=== PATIENT | female | born 2000 | race Caucasian/White ===

== ENCOUNTER 2022-03-24 22:35 | Inpatient (IN) | payer MEDICARE, MEDICAID, SELFPAY ==
[2022-03-24 22:47] VITALS: BP 155/106; PULSE 95; RESP 20; TEMP 36.7; O2SAT 96; BMI 38.2
--- NOTE | 2022-03-24 22:57 | ED.C_ITS ---
HPI - Psych General: Chief Complaint: Psychiatric Symptoms Stated Complaint: SI Time Seen by Provider: 03/24/22 22:39 Source: patient Mode of arrival: ambulatory Limitations: no limitations History of Present Illness: 22-year-old female who states that she has severe depression has been having suicidal thoughts. States she has been depressed all her life and states that she just feels worthless. She states she has been admitted in the past and is supposed to be on psychiatric meds but no longer ta kes anything. States she has been burning herself and having increasing thoughts of self-harm and would like to get help. Denies any suicide attempts. Associated symptoms: Reports depression and suicidal ideation Review of Systems Const: Denies: fever(s), chills, body aches or change in appetite Eyes: Denies: blurry vision or eye discomfort ENMT: Denies: throat pain or dental pain Card: Denies: chest pain Resp: Denies: dyspnea GI: Denies: abdominal pain, nausea, vomiting or diarrhea : Denies: dysuria Musc: Denies: neck pain or back pain Skin/Breast: Denies: rash Neuro: Denies: headache(s) Psych: Reports: depression and suicidal ideation Ilan/Lymph: Denies: easy bruising All/Imm: Denies: urticaria PFSH ED PFSH: Medical History Psychiatric care Social History (Updated 03/24/22 @ 22:58 by Mukesh Moses MD) Substance/Drug Use: current Substance/Drug use type: Marijuana Physical Exam Const: COMMON NORMALS: patient oriented x3 and healthy appearing HENMT: COMMON NORMALS: normocephalic and atraumatic HEAD & SCALP: normocephalic and atraumatic Eye: COMMON NORMALS: Equal, round and reactive pupils present and EOMs intact bilaterally PUPIL: Yes Equal, round and reactive pupils present Neck/C-Spine: COMMON NORMALS: full ROM and supple Chest: COMMONS NORMALS: normal inspection of the chest and normal palpation of entire chest wall Resp: COMMON NORMALS: normal respiratory effort, No retractions, No use of accessory muscles and clear to auscultation bilaterally AUSCULTATION: clear to auscultation bilaterally Cardio: COMMON NORMALS: regular rate, regular rhythm and No murmurs present (Cardio) RATE: regular rate RHYTHM: regular rhythm GI: COMMON NORMALS: Normal to inspection, nondistended, normoactive bowel sounds present, Soft to palpation, non-tender and no masses PALPATION: Yes Soft to palpation Extremity: COMMON NORMALS: normal to inspection and full ROM Neuro: COMMON NORMALS: patient oriented x3, moves all extremities and no focal motor deficits Psych: COMMON NORMALS: mental status grossly normal, Normal thought process present and cooperative MOOD & AFFECT: Yes depressed mood THOUGHT PROCESS: Normal thought process present THOUGHT CONTENT: Yes Suicidality present Skin: COMMON NORMALS: no rashes or lesions noted and no wounds GENERAL SKIN EXAM: no rashes or lesions noted Course Vital Signs: Vital signs: Vital Signs Temperature 98.0 F 03/24/22 22:47 Pulse Rate 95 03/24/22 22:47 Respiratory Rate 20 H 03/24/22 22:47 Blood Pressure 155/106 03/24/22 22:47 Pulse Oximetry 96 03/24/22 22:47 MDM - Psych Medical Decision Making Patient presents here with suicidal ideation. Patient's been cooperative here she is medically cleared placed under 96-hour hold I spoke to psychiatrist and will admit at this time. Lab Data : 03/24/22 22:50 03/24/22 22:50 Laboratory Results WBC 9.9 10^3/uL (4.0-10.0) 03/24/22 22:50 RBC 4.22 10^6/uL (4.1-5.3) 03/24/22 22:50 Hgb 12.2 g/dL (11.5-15.3) 03/24/22 22:50 Hct 37.1 % (37.0-47.0) 03/24/22 22:50 MCV 87.9 fl (81-99) 03/24/22 22:50 MCH 28.9 pg (28.0-34.0) 03/24/22 22:50 MCHC 32.9 g/dL (30.0-36.0) 03/24/22 22:50 RDW 12.5 % (12.1-15.1) 03/24/22 22:50 Plt Count 284 10^3/cmm (130-400) 03/24/22 22:50 MPV 10.0 fL (7.4-10.4) 03/24/22 22:50 Neut % (Auto) 67.1 % 03/24/22 22:50 Lymph % (Auto) 22.4 % 03/24/22 22:50 [place] % (Auto) 9.6 % 03/24/22 22:50 Eos % (Auto) 0.0 % 03/24/22 22:50 Baso % (Auto) 0.7 % 03/24/22 22:50 Neut # (Auto) 6.60 10^3/uL (1.8-7.7) 03/24/22 22:50 Lymph # (Auto) 2.2 10^3/uL (0.8-4.8) 03/24/22 22:50 [place] # (Auto) 1.0 10^3/uL (0.2-0.9) H 03/24/22 22:50 Eos # (Auto) 0.0 10^3/uL (0.0-0.8) 03/24/22 22:50 Baso # (Auto) 0.1 10^3/uL (0.0-0.1) 03/24/22 22:50 Nucleated RBC % (auto) 0 % 03/24/22:50 Nucleated RBCs # 0.0 /100WBC 03/24/22 22:50 Sodium 139 mmol/L (136-145) 03/24/22:50 Chloride 104 mmol/L (98-107) 03/24/22 22:50 BUN 9 mg/dL (6-20) 03/24/22 22:50 Calculated Osmolality 289 mOsm/kg (285-295) 03/24/22 22:50 Calcium 9.5 mg/dL (8.5-10.5) 03/24/22 22:50 Total Bilirubin 0.4 mg/dL (0.15-1.2) 03/24/22 22:50 AST 31 U/L (0-32) 03/24/22:50 ALT 26 U/L (0-33) 03/24/22 22:50 Alkaline Phosphatase 62 IU/L (35-105) 03/24/22 22:50 Total Protein 7.5 g/dL (6.6-8.7) 03/24/22 22:50 Albumin 4.9 g/dL (3.5-5.2) 05/25/22 22:50 Globulin 2.6 g/dL (1.3-4.6) 03/24/22 22:50 HCG, Qual Negative (Negative) 03/24/22 23:12 Urine Opiates Screen Negative ng/mL (Negative) 03/24/22 23:12 Ur Barbiturates Screen Negative ng/mL (Negative) 03/24/22 23:12 Ur Phencyclidine Scrn Negative ng/mL (Negative) 03/24/22 23:12 Ur Amphetamines Screen Negative ng/mL (Negative) 03/24/22 23:12 U Benzodiazepines Scrn Negative ng/mL (Negative) 03/24/22 23:12 Urine Cocaine Screen Negative ng/mL (Negative) 03/24/22 23:12 U Marijuana (THC) Screen Positive ng/mL (Negative) H 03/24/22 23:12 Discharge Plan Discharge Patient Disposition: Admitted As Inpatient Clinical Impression: Suicidal ideation Coding Level of Care Code ED Oil Pump Station Operator Chief for Eliseo Rodriguez Exam Comprehensive
[2022-03-24 23:00] LABS: Basophils # 0.1 10^3/uL (0.0-0.1); Basophils % 0.7 %; Hematocrit 37.1 % (37.0-47.0); Hemoglobin 12.2 g/dL (11.5-15.3); Lymphocytes # 2.2 10^3/uL (0.8-4.8); Lymphocytes % 22.4 %; Mean Corpuscular HGB Conc 32.9 g/dL (30.0-36.0); Mean Corpuscular Hemoglobin 28.9 pg (28.0-34.0); Mean Corpuscular Volume 87.9 fl (81-99); Monocytes % 9.6 %; Neutrophils % 67.1 %; Nucleated Red Blood Cells % 0 %; Platelet Count 284 10^3/cmm (130-400); Red Blood Count 4.22 10^6/uL (4.1-5.3); Red Cell Distribution Width 12.5 % (12.1-15.1); White Blood Count 9.9 10^3/uL (4.0-10.0)
[2022-03-24 23:21] LABS: Alanine Aminotransferase 26 U/L (0-33); Albumin Level 4.9 g/dL (3.5-5.2); Alcohol Level 173 mg/dL (0-10); Alkaline Phosphatase 62 IU/L (35-105); Anion Gap 20.1 (5-19); Aspartate Amino Transferase 31 U/L (0-32); Blood Urea Nitrogen 9 mg/dL (6-20); Calcium 9.5 mg/dL (8.5-10.5); Carbon Dioxide 18 mmol/L (22-29); Chloride 104 mmol/L (98-107); Globulin 2.6 g/dL (1.3-4.6); Glomerular Filtration Rate 61.6 mL/min (90-130); Glucose 133 mg/dL (65-115); Osmolality Calculated 289 mOsm/kg (285-295); Potassium 3.1 mmol/L (3.5-5.1); Sodium 139 mmol/L (136-145); Total Bilirubin 0.4 mg/dL (0.15-1.2); Total Protein 7.5 g/dL (6.6-8.7)
[2022-03-24 23:23] LABS: HCG Qualitative Urine. Negative (Negative)
[2022-03-24 23:30] LABS: Amphetamines Screen Urine Negative (Negative); Barbiturates Screen Urine Negative (Negative); Benzodiazepines Screen Urine Negative (Negative); Cocaine Screen Urine Negative (Negative); Opiate Screen Urine Negative (Negative); PCP Screen Urine Negative (Negative); THC Screen Urine Positive (Negative)
[2022-03-24 23:34] LABS: Acetaminophen < 5.0 ug/mL (10-30); Salicylate < 0.3 mg/dL (3-10)
[2022-03-25 00:41] VITALS: BP 104/58; PULSE 82; RESP 18; O2SAT 97
[2022-03-25 00:51] VITALS: BP 97/54; PULSE 83; RESP 18; TEMP 36.5; O2SAT 97
[2022-03-25] MEDS: OLANZapine 5 mg ODT PO ×2 (01:28→20:35)
[2022-03-25 01:33] VITALS: BMI 36.1
[2022-03-25 06:00] VITALS: BP 88/55; PULSE 74; RESP 17; TEMP 36.6; O2SAT 96
[2022-03-25] MEDS: nicotine 2 mg Gum BUCCAL (07:46)
[2022-03-25] MEDS: thiamine 100 mg Tablet PO (08:16)
[2022-03-25] MEDS: multivitamin therapeutic Tablet 1 TAB PO (08:17)
[2022-03-25] MEDS: ondansetron 4 MG Tablet PO ×2 (08:17→21:51)
[2022-03-25] MEDS: LORazepam 2 mg Tablet PO (08:17)
[2022-03-25] MEDS: folic acid 1 mg Tablet PO (08:17)
--- NOTE | 2022-03-25 09:14 | PC.NURSE ---
DURING AM ASSESSMENT THIS RN NOTICED PEN AGUIRRE AND SCRATCHES ON BILATERAL ARMS. PT ADMITS TO BEING SELF INFLICTED AND STATES I DID THAT AWHILE AGO TO MYSELF. I JUST WANT TO TAKE A KNIFE AND STAB MYSELF IN THE NECK OR STOMACH. PT SAFE, ROOM CLEARED OF ANY HAZARDOUS OBJECTS. PT BEGAN TO HIT HERSELF WITH CLOSED FISTS TO HER STOMACH AND HEAD. THIS RN WAS ABLE TO VERBALLY REDIRECT AND PT DID STOP. CIWA WAS PREFORMED AND SCORED 22, ATIVAN WAS GIVEN ORDERED. NOTIFIED DR. NARAYANAN OF BEHAVIOR AND PLACED ON A ONE ON ONE FOR PT SAFETY. CONTRACTED FOR SAFETY. DENIES SI/HI AT THIS TIME. PT STATES, I JUST WANT TO HARM MYSELF. THIS JUST STARTED A FEW WEEKS AGO. PT REPORTS SHE HEARS VOICES TELLING HER TO HARM HERSELF DAILY. C/O OF NAUSEA AND ZOFRAN WAS GIVEN ORDERED. PT CURRENTLY WITH SITTER. ORDERS PLACED. PT NOTIFIED. PT MOVED CLOSE TO NURSES STATION FOR CLOSE OBSERVATION.
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
--- NOTE | 2022-03-25 13:11 | PC.NURSE ---
Addendum entered by Odilia Carroll RN 03/26/22 07:31: DR. NARAYANAN WAS NOTIFIED AT 1245 OF PT BEING OBSERVED COMING OUT OF MALE ROOM. NO NEW ORDERS WERE RECEIVED. AGREED WITH PLACE PT ON NON ACUTE SIDE, FROM MALE. Original Note: THIS RN WAS NOTIFIED BY FUNDING ANALYST THAT PT WAS IN MALE ROOM THIS AM. WAS PLACED ON A ONE ON ONE THIS AM AT 830. FUNDING ANALYST STATES IT WAS RIGHT BEFORE THAT. RN WAS NOTIFIED AT 1245PM OF SITUATION. PT WAS PLACE ON NON ACUTE SIDE WITH SITTER TO SEPARATE FROM MALE PT. EDUCATED PT THAT SHE IS UNABLE TO BE IN THE OPPOSITE SEX ROOM. VERBALIZED UNDERSTANDING.
[2022-03-25 14:00] VITALS: BP 88/55; PULSE 74; RESP 17; TEMP 36.6; O2SAT 96
[2022-03-25 16:16] VITALS: BP 121/79; PULSE 70; RESP 16; TEMP 36.8; O2SAT 99
[2022-03-25 20:24] VITALS: BP 125/78; PULSE 70; RESP 16; TEMP 36.5; O2SAT 98
[2022-03-25] MEDS: trazodone 50 mg Tablet PO (20:35)
[2022-03-25] MEDS: acetaminophen 325 mg Tablet 650 MG PO (21:46)
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
[2022-03-25] MEDS: LORazepam 2 mg/mL INJ 1 mL IM (22:23)
[2022-03-26] MEDS: promethazine 25 mg/mL SDV 1 mL 50 MG IM (00:23)
[2022-03-26] MEDS: OLANZapine 5 mg ODT PO (01:15)
--- NOTE | 2022-03-26 05:24 | PC.NURSE ---
Addendum entered by Antonella Shukla RN 03/26/22 06:23: I witnessed Promethazine injection for nausea. Original Note: PATIENT HAS BEEN AWAKE MOST OF NIGHT. WHEN IN BED RESTING WITH EYES CLOSED REMAINS RESTLESS AND WITHOUT FITFUL SLEEP. PT HAS HAD C/O ABD PAIN EARLY IN SHIFT, ANXIETY, INSOMNIA AND AH. HAS RECEIVED PRN MEDS FOLLOWS- 2034- PT TOOK PRN ZYDIS FOR C/O ANXIETY AND PRN TRAZODONE FOR SLEEP. BOTH MEDS INEFFECTIVE AT THAT TIME. 2145- C/O EPIGASTRIC PAIN AND TOOK TYLENOL PRN PER REQUEST. MEDICATION INEFFECTIVE. SOON VOICED NAUSEA. 2150- C/O NAUSEA AND VOMITING OF CLEAR FLUIDS. TOOK PRN ZOFRAN AT THAT THIME TO NO EFFECT. 2222- PT CIWA SCORED AT 16. ATIVAN 2 MG GIVEN PER PROTOCOL. GIVEN IM TO LEFT DELTOID D/T CONTINUED N/V. ATIVAN EFFECTIVE FOR DETOX SYMPTOMS OTHER THAN N/V. 0023- N/V HAS CONTINUED. NOTIFDENNYS, NEW ORDER FOR IM PHENERGAN. GIVEN TO RIGHT GLUTE WITHOUT ISSUES, TO SOME EFFECT. 5- PT REPORTS SLIGHT IMPROVEMENT TO VOMITING BUT CONTINUED NAUSEA AT THIS TIME. STATES THAT SHE TRIES TO LAY DOWN THAT SHE IS HAVING AH WHICH IS INCREASING HER ANXIETY. ZYDIS GIVEN AT THIS TIME. REMAINS RESTLESS IN BED AT THIS TIME.
[2022-03-26 06:00] VITALS: RESP 16
[2022-03-26 06:38] VITALS: BP 162/87; PULSE 57; RESP 16; TEMP 36.8; O2SAT 100
[2022-03-26] MEDS: multivitamin therapeutic Tablet 1 TAB PO (09:12)
[2022-03-26] MEDS: folic acid 1 mg Tablet PO (09:12)
[2022-03-26] MEDS: thiamine 100 mg Tablet PO (09:12)
[2022-03-26] MEDS: ondansetron 4 MG Tablet PO ×2 (09:14→20:34)
--- NOTE | 2022-03-26 09:26 | PC.NURSE ---
PRN PT LAST VOMITED AT 0630. PT COMPLAINS OF NAUSEA, ZOFRAN GIVEN.
[2022-03-26 14:00] VITALS: BP 153/82; PULSE 47; RESP 16; TEMP 37.1; O2SAT 93
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
[2022-03-26 19:35] VITALS: PULSE 53; RESP 17; TEMP 37.6; O2SAT 151
[2022-03-26] MEDS: acetaminophen 325 mg Tablet 650 MG PO (20:34)
[2022-03-26] MEDS: trazodone 50 mg Tablet PO (20:35)
--- NOTE | 2022-03-26 23:37 | PC.NURSE ---
PT IN BED RESTING EARLY IN EVENING. REMAINS ONE TO ONE. ONLY C/O IS ABD PAIN AND MILD NAUSEA. TOOK PRN ZOFRAN AND TYLENOL, BOTH APPEAR TO BE EFFECTIVE. NO FURTHER C/O VOICED. RESTING WITH EYES CLOSED.
[2022-03-27 06:00] VITALS: BP 121/80; PULSE 83; RESP 16; TEMP 37.1; O2SAT 95
[2022-03-27] MEDS: lithium carbonate 300 mg Capsule PO ×2 (08:12→18:13)
[2022-03-27] MEDS: multivitamin therapeutic Tablet 1 TAB PO (08:13)
[2022-03-27] MEDS: thiamine 100 mg Tablet PO (08:13)
[2022-03-27] MEDS: folic acid 1 mg Tablet PO (08:13)
[2022-03-27 13:27] VITALS: BP 108/84; PULSE 101; RESP 18; TEMP 37.1; O2SAT 98
[2022-03-27 15:02] LABS: Hepatitis A Antibody IgM Non-Reactive (Nonreactive); Hepatitis B Core IgM Non-Reactive (Nonreactive); Hepatitis B Surface Antigen Non-Reactive (Nonreactive); Hepatitis C Virus Antibody Non-Reactive (Nonreactive)
[2022-03-27 15:07] LABS: Rapid Plasma Reagin Syphilis Nonreactive (Nonreactive)
[2022-03-27 15:50] LABS: HIV 1 & 2 Antibody Non-Reactive (Non-Reactiv); HIV 1 & 2 Antigen Non-Reactive (Non-Reactiv)
--- NOTE | 2022-03-27 17:58 | P.NPUPN_ITS ---
Subjective NPU Subjective: Patient presents today. She is feeling good. Or least better than she was feeling yesterday showing GI upset. She reports that she is tolerating the lithium fine but is on what is good I do want to get out here. She reports that she is been in residential living much of her adult life and that she had left the hospital with a friend today and was trying to see if she could do independent living, have a job etc. she still not sure exactly what she will need to do. She gave a nursing facility she last went to [facility] in [place] and hold getting the information that we have not been able to get from the pharmacy which has strange and limited hours. She had consented to an STD panel as well as a hepatitis panel secondary to the unprotected sexual encounter. Mental Status Exam MSE Comments: This is an overweight versus obese white female in hospital scrubs with colorful hair and adequate grooming and eye contact. No abnormal movements. Cooperative with exam in no acute distress. Speech was slightly decreased rate and volume. Mood described as okay, affect slightly subdued. Thought process, organized. Thought content: patient denies any suicidal or homicidal ideation, no delusions reported or noted, and denies any auditory or visual hallucinations. Attention and concentration are intact and memory is reliable though none were formally tested. She is alert and oriented three ti mes. Insight and judgment are limited. Impulse control is impaired.? Vitals/I&O/Wt Last Vital Signs Temp 99.1 F 03/27/22 20:10 Pulse 68 03/27/22 20:10 Resp 18 03/27/22 13:27 BP 121/78 03/27/22 20:10 Pulse Ox 99 03/27/22 20:10 Weight last 48 hrs Weight 98.543 kg Data NPU : 03/24/22 22:50 03/24/22 22:50 Micro: Microbiology 03/27/22 14:00 Chlamydia trachomatis (DANK) - Final Urine Random Neisseria gonorrhoeae (DANK) - Final Trichomonas vaginalis (DANK - Final Microbiology 03/27/22 14:00 Urine Random Chlamydia trachomatis (DANK) - Final 03/27/22 14:00 Urine Random Neisseria gonorrhoeae (DANK) - Final 03/27/22 14:00 Urine Random Trichomonas vaginalis (DANK - Final A&P Assessment and plan (1) Unprotected sexual intercourse: Status: Acute (2) Cannabis use disorder, severe, dependence: Status: Acute (3) Alcohol use disorder, moderate, dependence: Status: Acute (4) Major depressive disorder: Status: Acute (5) PTSD (post-traumatic stress disorder): Status: Acute (6) Cluster B personality disorder in adult: Status: Acute (7) Suicidal ideation: Status: Acute Plan This is a 22-year-old, white female, with post-traumatic stress disorder, depression, anxiety, rule out borderline personality disorder, who presents reporting that she has been off her medication since she left the hospital a week or two ago, and she is hoping to get them restarted and assistance in actually getting them so they can be effective once she leaves. RECOMMENDATION AND PLAN: 1. Continue current medication. He started lithium 300 mg p.o. twice daily and we will get the names and doses of her other medications and restart them as appropriate. 2. Encourage individual, group, and milieu therapy. 3. Continue q-15 minute checks for safety. 4. Encourage sober living treatment after discharge, at the highest level of care, to which she is willing to commit. 5. ? Will get studies to create baseline STD panel as well as hepatitis panel. Involuntary Hold Information 96 Hour Hold: 96 Hour Involuntary Admission: Yes 96 Hour Hold Ending Date: 03/30/22 96 Hour Hold Ending Time: 23:00 Attestations NPU Medical Necessity Statement*: Inpatient hospitalization is medically necessary and the clinically appropriate intervention, at this time. We will monitor medications and make changes as indicated.? Likely length of stay is 2-4 days. Coding Level of Care Code Acute Teacher Of The Emotionally Disturbed for [facility] Diagnoses Unprotected sexual intercourse Z72.51 Cannabis use disorder, severe, dependence F12.20 Alcohol use disorder, moderate, dependence F10.20 Major depressive disorder F32.9 PTSD (post-traumatic stress disorder) F43.10 Cluster B personality disorder in adult F60.9 Suicidal ideation R45.851
[2022-03-27 20:10] VITALS: BP 121/78; PULSE 68; TEMP 37.3; O2SAT 99
[2022-03-27] MEDS: trazodone 50 mg Tablet PO (20:21)
--- NOTE | 2022-03-27 20:48 | PC.NURSE ---
PT UP IN DAYROOM. STAYING MOSTLY TO SELF AT THIS TIME. IS CALM AND COOPERATIVE UPON APPROACH. OPENLY DISCUSSED MENTAL STATE WITH THIS NURSE. REPORTS FEELING LIKE A ZOMBIE TODAY AND NOT CARING ABOUT SELF THEREFORE FEELING LIKE WHY SHOULD OTHERS CARE. TALKED TO PT ABOUT ALLOWING OTHERS TO CARE FOR HER SHE WORKS THROUGH THIS AND PT WAS RECEPTIVE TO TEACHING. REPORTS SOME PASSIVE SI, NO PLAN OR INTENT BUT HAS THOUGHTS AT TIMES. CONTRACTS FOR SAFETY WITH STAFF. REPORTS THAT SHE IS TRYING TO GET HER DAYS AND NIGHTS STRAIGHTEN BACK OUT TONIGHT AND REQUESTED PRN TRAZODONE. NO OTHER C/O VOICED. CLEAR THOUGHT PROCESS, GOOD EYE CONTACT.
[2022-03-28] MEDS: acetaminophen 325 mg Tablet 650 MG PO ×2 (02:13→11:48)
[2022-03-28] MEDS: ondansetron 4 MG Tablet PO ×2 (02:13→11:48)
--- NOTE | 2022-03-28 02:17 | PC.NURSE ---
Patient is at the nurses station with complaints of mid upper abdominal pain slightly left under her breast. She reports that it is a hard sharp squeezing pain. She rated it a 10. Patient left the window and went to the bathroom stating she was going to be sick. She reports that she has been drinking alot lately and that could be the reason it hurts. Zofran 4 mg po and Tylenol 650 mg po given for pain and nausea.
--- NOTE | 2022-03-28 03:42 | PC.NURSE ---
Follow-up Patient is resting quietly since taking zofran and tylenol. No c/o of abdominal pain.
[2022-03-28 05:25] VITALS: BMI 35.6
[2022-03-28 06:00] VITALS: BP 126/73; PULSE 55; RESP 15; TEMP 36.9; O2SAT 97
--- NOTE | 2022-03-28 08:33 | PC.NURSE ---
STD THIS NURSE SPOKE WITH PATIENT ABOUT NEW CHLAMYDIA AND TRACHOMATIS DIAGNOSIS. WHEN THIS NURSE TOLD HER SHE DID TEST POSITIVE, PT STATES OH, I NEW I HAD SOME ABNORMAL CELLS BUT I HAVE NOT HAD TIME TO GET IT TREATED. THIS NURSE CONTINUED THE EDUCATION REGARDING MEDICATION AND THE DISEASE PROCESS. PT VERBALIZED UNDERSTANDING. MEDICATION WILL BE GIVEN THIS AM.
[2022-03-28] MEDS: cefTRIAXone 1,000 mg SDV 1000 MG IM (09:06)
[2022-03-28] MEDS: lithium carbonate 300 mg Capsule PO ×2 (09:06→17:23)
[2022-03-28] MEDS: multivitamin therapeutic Tablet 1 TAB PO (09:06)
[2022-03-28] MEDS: azithromycin 250 mg Tablet 1000 MG PO (09:06)
[2022-03-28] MEDS: thiamine 100 mg Tablet PO (09:06)
[2022-03-28] MEDS: folic acid 1 mg Tablet PO (09:06)
[2022-03-28] MEDS: metroNIDAZOLE 500 MG Tablet 2000 MG PO (09:06)
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
[2022-03-28 11:25] LABS: Hepatitis A Antibody IgM Non-Reactive (Nonreactive); Hepatitis B Core IgM Non-Reactive (Nonreactive); Hepatitis B Surface Antigen Non-Reactive (Nonreactive); Hepatitis C Virus Antibody Non-Reactive (Nonreactive)
--- NOTE | 2022-03-28 11:29 | P.NPUPN_ITS ---
Subjective NPU Subjective: Patient presents today reporting that she feels a little better. She was okay with the lab work that was done yesterday and a psychiatric consult was ordered today for the positive results to make sure she had appropriate treatment which she was fine with that as well. She reports that she is feeling a little better and is having less upset stomach. We discussed that status quo awaiting response from Sabi Stack, standpoint of her medication but she is tolerating the lithium okay. She denies any other problems or concerns. Mental Status Exam MSE Comments: This is an overweight versus obese white female in hospital scrubs with colorful hair and adequate grooming and eye contact. No abnormal movements. Cooperative with exam in no acute distress. Speech was slightly decreased rate and volume. Mood described as no different, affect slightly subdued. Thought process, organized. Thought content: patient denies any suicidal or homicidal ideation, no delusions reported or noted, and denies any auditory or visual hallucinations. Attention and concentration are intact and memory is reliable though none were formally tested. She is alert and oriented three times. Insight and judgment are limited. Impulse control is impaired.? Vitals/I&O/Wt Last Vital Signs Temp 98.4 F 03/28/22 06:00 Pulse 55 L 03/28/22 06:00 Resp 15 03/28/22 06:00 BP 126/73 03/28/22 06:00 Pulse Ox 97 03/28/22 06:00 Weight last 48 hrs Weight 98.543 kg Data NPU : 03/24/22 22:50 03/24/22 22:50 Micro: Microbiology 03/27/22 14:00 Chlamydia trachomatis (DANK) - Final Urine Random Neisseria gonorrhoeae (DANK) - Final Trichomonas vaginalis (DANK - Final Microbiology 03/27/22 14:00 Urine Random Chlamydia trachomatis (DANK) - Final 03/27/22 14:00 Urine Random Neisseria gonorrhoeae (DANK) - Final 03/27/22 14:00 Urine Random Trichomonas vaginalis (DANK - Final A&P Assessment and plan (1) Sexually transmitted disease (STD): Status: Acute (2) Cannabis use disorder, severe, dependence: Status: Acute (3) Unprotected sexual intercourse: Status: Acute (4) Alcohol use disorder, moderate, dependence: Status: Acute (5) Major depressive disorder: Status: Acute (6) PTSD (post-traumatic stress disorder): Status: Acute (7) Cluster B personality disorder in adult: Status: Acute (8) Suicidal ideation: Status: Acute Plan This is a 22-year-old, white female, with post-traumatic stress disorder, depression, anxiety, rule out borderline personality disorder, who presents reporting that she has been off her medication since she left the hospital a week or two ago, and she is hoping to get them restarted and assistance in actually getting them so they can be effective once she leaves. RECOMMENDATION AND PLAN: 1. Continue current medication.? He started lithium 300 mg p.o. twice daily and we will get the names and doses of her other medications and restart them as appropriate. 2. Encourage individual, group, and milieu therapy. 3. Continue q-15 minute checks for safety. 4. Encourage sober living treatment after discharge, at the highest level of care, to which she is willing to commit. 5. ?We obtained studies and results for lab work. Hospitalist consult was requested for positive results, treatment and counseling. Involuntary Hold Information 96 Hour Hold: 96 Hour Involuntary Admission: Yes 96 Hour Hold Ending Date: 03/30/22 96 Hour Hold Ending Time: 23:00 Attestations NPU Medical Necessity Statement*: Inpatient hospitalization is medically necessary and the clinically appropriate intervention, at this time. We will monitor medications and make changes as indicated.? Likely length of stay is 2-4 days. Coding Level of Care Code Acute Metal Ceiling Builder for [facility] Diagnoses Sexually transmitted disease (STD) A64 Cannabis use disorder, severe, dependence F12.20 Unprotected sexual intercourse Z72.51 Alcohol use disorder, moderate, dependence F10.20 Major depressive disorder F32.9 PTSD (post-traumatic stress disorder) F43.10 Cluster B personality disorder in adult F60.9 Suicidal ideation R45.851
[2022-03-28 11:34] LABS: Rapid Plasma Reagin Syphilis Nonreactive (Nonreactive)
--- NOTE | 2022-03-28 11:49 | PC.NURSE ---
PRN PATIENT CAME TO NURSES STATION REQUESTING TYLENOL AND NAUSEA MEDICATION. PATIENT STATES SHE RECENTLY VOMITED IN HER BATHROOM. TYLENOL AND ZOFRAN WERE GIVEN.
[2022-03-28 12:25] LABS: HIV 1 & 2 Antibody Non-Reactive (Non-Reactiv); HIV 1 & 2 Antigen Non-Reactive (Non-Reactiv)
[2022-03-28 14:00] VITALS: BP 130/82; PULSE 79; RESP 20; TEMP 36.8; O2SAT 97
--- NOTE | 2022-03-28 15:34 | PC.NURSE ---
THIS IS THE SECOND DAY IN A ROW I HAVE ATTEMPTED TO CALL AND GET DISCHARGE SUMMARY REGARDING THIS PATIENT. I CALLED [facility] AND HAVE HAD TO LEAVE A MESSAGE BOTH TIMES.
[2022-03-28 20:03] VITALS: BP 109/70; PULSE 66; RESP 16; TEMP 36.9; O2SAT 98
[2022-03-29 06:00] VITALS: BP 120/85; PULSE 65; RESP 17; TEMP 36.7; O2SAT 96
[2022-03-29] MEDS: lithium carbonate 300 mg Capsule PO ×2 (07:53→17:38)
[2022-03-29] MEDS: thiamine 100 mg Tablet PO (07:53)
[2022-03-29] MEDS: multivitamin therapeutic Tablet 1 TAB PO (07:53)
[2022-03-29] MEDS: folic acid 1 mg Tablet PO (07:53)
[2022-03-29] MEDS: acetaminophen 325 mg Tablet 650 MG PO (08:32)
[2022-03-29] MEDS: ondansetron 4 MG Tablet PO (08:33)
[2022-03-29 08:46] LABS: HCG Qualitative Urine. Negative (Negative)
--- NOTE | 2022-03-29 09:08 | PC.NURSE ---
DENIES HI AND AVH AT THIS TIME. REPORTS CHRONIC SI WITH NO PLAN. CONTRACTED FOR SAFETY. REPORTS SHE JUST HAS PASSING THOUGHTS. REPORTS NAUSEA AND ABDOMINAL PAIN RATING IT 4/10. ZOFRAN AND TYLENOL GIVEN ORDERED. PT. AMBULATING IN [place] WITH [facility], CONVERSING WITH EASE.
[2022-03-29 14:00] VITALS: BP 117/81; PULSE 71; RESP 17; TEMP 36.6; O2SAT 97
--- NOTE | 2022-03-29 15:36 | PC.NURSE ---
BEHAVIOR INSTRUCTOR PHYSICAL EDUCATION NOTIFIED THIS RN THAT PT WROTE HER NAME ON HER ARM AND STATED, I HAVE TO WRITE MY NAME DOWN TO REMIND MYSELF WHO I AM BECAUSE I LOST MYSELF, I FEEL LIKE A ZOMBIE. 20 MINUTES LATER PT WAS OBSERVED BY THIS RN DOWN THE HALLWAY RAISING UP HER SHIRT AND REVEALING HER STOMACH TO OTHER PATIENTS. PT WAS INFORMED NOT TO PULL HER SHIRT UP AND TO LEAVE HER SHIRT DOWN. PT PULLED SHIRT DOWN THEN WENT TO DAY AREA WITH PEERS. DR. NARAYANAN NOTIFIED OF BEHAVIOR. NO NEW ORDERS RECEIVED
--- NOTE | 2022-03-29 16:47 | P.NPUPN_ITS ---
Subjective NPU Subjective: Presented feeling better overall. We discussed the fact that she had some attention seeking behavior and some sexually inappropriate behaviors and we discussed the fact that she needed to manage private things in private activities in her room. She understood. She is working with the social work team on options for placement and more residential settings given her continued difficulties to manage herself independently. We discussed that we still have not gotten information from [facility]. But we did discuss the possibility of increasing her team tomorrow and she understood and agreed to proceed as is documented in this note. Mental Status Exam MSE Comments: This is an overweight versus obese white female in hospital scrubs with colorful hair and adequate grooming and eye contact. No abnormal movements. Cooperative with exam in no acute distress. Speech was slightly decreased rate and volume. Mood described as a little better, affect congruent thought process, organized. Thought content: patient denies any suicidal or homicidal ideation, no delusions reported or noted, and denies any auditory or visual hallucinations. Attention and concentration are intact and memory is rel iable though none were formally tested. She is alert and oriented three times. Insight and judgment are limited. Impulse control is impaired.? Intellectual abilities are limited. Vitals/I&O/Wt Last Vital Signs Temp 97.8 F 03/29/22 14:00 Pulse 71 03/29/22 14:00 Resp 17 03/29/22 14:00 BP 117/81 03/29/22 14:00 Pulse Ox 97 03/29/22 14:00 Weight last 48 hrs Weight 98.543 kg Data NPU : 03/24/22 22:50 03/24/22 22:50 A&P Assessment and plan (1) Sexually transmitted disease (STD): Status: Acute (2) Unprotected sexual intercourse: Status: Acute (3) Cannabis use disorder, severe, dependence: Status: Acute (4) Alcohol use disorder, moderate, dependence: Status: Acute (5) Major depressive disorder: Status: Acute (6) PTSD (post-traumatic stress disorder): Status: Acute (7) Cluster B personality disorder in adult: Status: Acute (8) Suicidal ideation: Status: Acute Plan This is a 22-year-old, white female, with post-traumatic stress disorder, depression, anxiety, rule out borderline personality disorder, who presents reporting that she has been off her medication since she left the hospital a week or two ago, and she is hoping to get them restarted and assistance in actually getting them so they can be effective once she leaves. RECOMMENDATION AND PLAN: 1. Continue current medication.? He started lithium 300 mg p.o. twice daily and we will get the names and doses of her other medications and restart them as appropriate. We will consider increasing lithium in the morning. 2. Encourage individual, group, and milieu therapy. 3. Continue q-15 minute checks for safety. 4. Encourage sober living treatment after discharge, at the highest level of care, to which she is willing to commit. 5. ?We obtained studies and results for lab work.? Hospitalist consult was requested for positive results, treatment and counseling. Thank you for hospitalist consult and will follow recommendations for treatment as indicated. Involuntary Hold Information 96 Hour Hold: 96 Hour Involuntary Admission: Yes 96 Hour Hold Ending Date: 03/30/22 96 Hour Hold Ending Time: 23:00 Attestations NPU Medical Necessity Statement*: Inpatient hospitalization is medically necessary and the clinically appropriate intervention, at this time. We will monitor medications and make changes as indicated.? Likely length of stay is 1-3 days. 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
[2022-03-29 20:14] VITALS: BP 116/79; PULSE 63; RESP 16; TEMP 36.8; O2SAT 97
[2022-03-29] MEDS: trazodone 50 mg Tablet PO ×2 (20:52→22:44)
[2022-03-30] MEDS: hyDROXYzine 25 mg Capsule 50 MG PO ×2 (00:32→10:41)
[2022-03-30 06:00] VITALS: BP 111/75; PULSE 84; RESP 17; TEMP 36.9; O2SAT 97
[2022-03-30] MEDS: folic acid 1 mg Tablet PO (07:39)
[2022-03-30] MEDS: thiamine 100 mg Tablet PO (07:39)
[2022-03-30] MEDS: lithium carbonate 300 mg Capsule PO ×2 (07:39→20:11)
[2022-03-30] MEDS: acetaminophen 325 mg Tablet 650 MG PO (07:40)
[2022-03-30] MEDS: multivitamin therapeutic Tablet 1 TAB PO (07:40)
--- NOTE | 2022-03-30 10:42 | PC.NURSE ---
PRN VISTARIL 50 MG GIVEN PO PER PT C/O STATED ANXIETY
[2022-03-30 14:00] VITALS: BP 121/83; PULSE 78; RESP 17; TEMP 36.8; O2SAT 97
--- NOTE | 2022-03-30 16:50 | P.NPUPN_ITS ---
Subjective NPU Subjective: Patient presents today reporting she is feeling like she needs her medications be restarted. We discussed working with the treatment team to get those provide as well as getting a lithium level in the morning before likely increasing her lithium. She continues to be open about her sexualized thinking. She reports he tries to be good and sometimes she is and sometimes she is not. Mental Status Exam MSE Comments: This is an overweight versus obese white female in hospital scrubs with colorful hair and adequate grooming and eye contact. No abnormal movements. Cooperative with exam in no acute distress. Speech was slightly decreased rate and volume. Mood described as a little better, affect congruent thought process, organized. Thought content: patient denies any suicidal or homicidal ideation, no delusions reported or noted, and denies any auditory or visual hallucinations. Attention and concentration are intact and memory is reliable though none were formally tested. She is alert and oriented three times. Insight and judgment are limited. Impulse control is impaired.? Intellectual abilities are limited. Vitals/I&O/Wt Last Vital Signs Temp 98.2 F 03/30/22 14:00 Pulse 78 03/30/22 14:00 Resp 17 03/30/22 14:00 BP 121/83 03/30/22 14:00 Pulse Ox 97 03/30/22 14:00 Data NPU : 03/24/22 22:50 03/24/22 22:50 A&P Assessment and plan (1) Sexually transmitted disease (STD): Status: Acute (2) Unprotected sexual intercourse: Status: Acute (3) Cannabis use disorder, severe, dependence: Status: Acute (4) Alcohol use disorder, moderate, dependence: Status: Acute (5) Major depressive disorder: Status: Acute (6) PTSD (post-traumatic stress disorder): Status: Acute (7) Cluster B personality disorder in adult: Status: Acute (8) Suicidal ideation: Status: Acute Plan This is a 22-year-old, white female, with post-traumatic stress disorder, depression, anxiety, rule out borderline personality disorder, who presents reporting that she has been off her medication since she left the hospital a week or two ago, and she is hoping to get them restarted and assistance in actually getting them so they can be effective once she leaves. RECOMMENDATION AND PLAN: 1. Continue current medication.? He started lithium 300 mg p.o. twice daily and we will get the names and doses of her other medications and restart them as appropriate.? We will consider increasing lithium in the morning. obtaain lithium level in the morning. 2. Encourage individual, group, and milieu therapy. 3. Continue q-15 minute checks for safety. 4. Encourage sober living treatment after discharge, at the highest level of care, to which she is willing to commit. 5. ?We obtained studies and results for lab work.? Hospitalist consult was requested for positive results, treatment and counseling.? Thank you for hospitalist consult and will follow recommendations for treatment as indicated. 6. Significant concerns exist about her sexual promiscuity and her never having succeeded outside of the residential setting and her risk for danger if discharged to a correction or any other unsupervised setting. We will submit 21- day hold in the morning. 7. If information is available we will personally call the hospital morning and talk to [facility] administration about their inappropriate use of HIPAA causing undue limitations on care. Involuntary Hold Information 96 Hour Hold: 96 Hour Involuntary Admission: Yes 96 Hour Hold Ending Date: 03/30/22 96 Hour Hold Ending Time: 23:00 Attestations NPU Medical Necessity Statement*: Inpatient hospitalization is medically necessary and the clinically appropriate intervention, at this time. We will monitor medications and make changes as indicated.? Likely length of stay is 4-6 days. Need to look at placement options Coding Level of Care Code Acute Machine Shop Inspector for g Fwd Diagnoses Sexually transmitted disease (STD) A64 Unprotected sexual intercourse Z72.51 Cannabis use disorder, severe, dependence F12.20 Alcohol use disorder, moderate, dependence F10.20 Major depressive disorder F32.9 PTSD (post-traumatic stress disorder) F43.10 Cluster B personality disorder in adult F60.9 Suicidal ideation R45.851
[2022-03-30] MEDS: trazodone 50 mg Tablet PO (20:11)
[2022-03-30 21:22] VITALS: BP 109/75; PULSE 77; RESP 18; TEMP 36.7; O2SAT 97
[2022-03-31 06:00] VITALS: BP 123/82; PULSE 71; RESP 18; TEMP 36.7; O2SAT 97
[2022-03-31 07:48] LABS: Lithium 0.5 mmol/L (0.6-1.2)
[2022-03-31] MEDS: lithium carbonate 300 mg Capsule PO ×2 (08:22→20:08)
[2022-03-31] MEDS: thiamine 100 mg Tablet PO (08:22)
[2022-03-31] MEDS: multivitamin therapeutic Tablet 1 TAB PO (08:22)
[2022-03-31] MEDS: folic acid 1 mg Tablet PO (08:22)
[2022-03-31 14:00] VITALS: BP 110/77; PULSE 98; RESP 17; TEMP 36.6; O2SAT 97
--- NOTE | 2022-03-31 15:21 | W.PM.NPUPNS ---
Subjective NPU Subjective: Patient presents today reporting that things are going okay. We discussed concerns related to her going back to a nonstructured environment and she agreed. We discussed her 96-hour hold coming to an end and desire for her to sign into the hospital versus us initiating a 21-day hold. We discussed utilizing her lithium level she likely increase her lithium to 300 mg morning and 600 mg at night as well as getting information from [facility] as to her previous medications. Mental Status Exam MSE Comments: This is an overweight versus obese white female in hospital scrubs with colorful hair and adequate grooming and eye contact. No abnormal movements. Cooperative with exam in no acute distress. Speech was more normal rate and volume. Mood described as okay, affect congruent thought process, organized. Thought content: patient denies any suicidal or homicidal ideation, no delusions reported or noted, and denies any auditory or visual hallucinations. Attention and concentration are intact and memory is reliable though none were formally tested. She is alert and oriented three times. Insight and judgment are limited. Impulse control is impaired.? Intellectual abilities are limited. Vitals/I&O/Wt Last Vital Signs Temp 97.9 F 03/31/22 14:00 Pulse 98 03/31/22 14:00 Resp 17 03/31/22 14:00 BP 110/77 03/31/22 14:00 Pulse Ox 97 03/31/22 14:00 Data NPU : 03/24/22 22:50 03/24/22 22:50 A&P Assessment and plan (1) Sexually transmitted disease (STD): Status: Acute (2) Unprotected sexual intercourse: Status: Acute (3) Cannabis use disorder, severe, dependence: Status: Acute (4) Alcohol use disorder, moderate, dependence: Status: Acute (5) Major depressive disorder: Status: Acute (6) PTSD (post-traumatic stress disorder): Status: Acute (7) Cluster B personality disorder in adult: Status: Acute (8) Suicidal ideation: Status: Acute Plan This is a 22-year-old, white female, with post-traumatic stress disorder, depression, anxiety, rule out borderline personality disorder, who presents reporting that she has been off her medication since she left the hospital a week or two ago, and she is hoping to get them restarted and assistance in actually getting them so they can be effective once she leaves. RECOMMENDATION AND PLAN: 1. Continue current medication.? She started lithium 300 mg p.o. twice daily and we will get the names and doses of her other medications and restart them as appropriate.? We will consider increasing lithium in the morning. obtain lithium level in the morning. and increase lithium as indicated. 2. Encourage individual, group, and milieu therapy. 3. Continue q-15 minute checks for safety. 4. Encourage sober living treatment after discharge, at the highest level of care, to which she is willing to commit. 5. ?We obtained studies and results for lab work.? Hospitalist consult was requested for positive results, treatment and counseling.? Thank you for hospitalist consult and will follow recommendations for treatment as indicated. 6. ? Significant concerns exist about her sexual promiscuity and her never having succeeded outside of the residential setting and her risk for danger if discharged to a detention or any other unsupervised setting.? Patient was willing to sign into the hospital understanding the dangers she presents herself unsupervised/unstructured. 7. ? If information is not available we will personally call the hospital morning and talk to [facility] administration about their inappropriate use of HIPAA causing undue limitations on care. Involuntary Hold Information 96 Hour Hold: 96 Hour Involuntary Admission: Yes 96 Hour Hold Ending Date: 03/30/22 96 Hour Hold Ending Time: 23:00 Attestations U Medical Necessity Statement*: Inpatient hospitalization is medically necessary and the clinically appropriate intervention, at this time. We will monitor medications and make changes as indicated.? Likely length of stay is 4-6 days. 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
--- NOTE | 2022-03-31 17:08 | PC.NURSE ---
NEW ORDERS DR. NARAYANAN CALLED THIS RN AFTER SPEAKING TO [facility] TO ATTEMPT TO GET MEDICATIONS AND DC SUMMARY SO MEDICATIONS COULD BE CONTINUED TO PROVIDE CONTINUITY OF CARE. [facility] WOULD NOT PROVIDE MEDICATIONS AFTER THIS RN CALLING AND PROVIDING A RELEASE BY PT. AFTER SPEAKING WITH DR. NARAYANAN FOR QUITS SOME TIME, [facility] NURSE ELIGIBILITY CONSULTANT DID REPORT THE FOLLOWING MEDICATIONS WERE PRESCRIBED AT SD FROM [facility]. SEROQUEL 300 MG Q HS, PROZOSIN 2 MG Q HS, DEPAKOTE 750 MG BID, ARISTADA 888 MG Q 2 MONTHS AND VISTARIL 25 MG Q6 HOURS PRN. NEW ORDERS RECEIVED TO START LITHIUM 600 MG Q HS, SEROQUEL 100 MG Q HS AND DEPAKOTE 500 MG PO BID. ALL ORDERS PLACED IN COMPUTER, PT NOTIFIED. EDUCATION PROVIDED.
[2022-03-31 19:57] VITALS: BP 132/61; PULSE 59; RESP 16; TEMP 36.8; O2SAT 99
[2022-03-31] MEDS: lithium carbonate 300 mg Capsule 600 MG PO (20:05)
[2022-03-31] MEDS: quetiapine 100 mg Tablet PO (20:05)
[2022-04-01 06:00] VITALS: BP 108/75; PULSE 69; RESP 16; TEMP 36.6; O2SAT 99
[2022-04-01] MEDS: divalproex ER 500 mg Tablet (24H) PO ×2 (08:02→18:17)
[2022-04-01] MEDS: lithium carbonate 300 mg Capsule PO (08:03)
[2022-04-01] MEDS: multivitamin therapeutic Tablet 1 TAB PO (08:03)
[2022-04-01] MEDS: thiamine 100 mg Tablet PO (08:03)
[2022-04-01] MEDS: folic acid 1 mg Tablet PO (08:03)
[2022-04-01] MEDS: nicotine 2 mg Gum BUCCAL (10:44)
[2022-04-01 14:00] VITALS: BP 110/71; PULSE 77; RESP 17; TEMP 36.7; O2SAT 98
--- NOTE | 2022-04-01 16:03 | W.PM.NPUPNS ---
Subjective NPU Subjective: She says that she is doing better. She feels like her medications are good and she would like to continue taking them unchanged. She is sleeping well. She still has nightmares and would like to reinstitute prazosin 2 mg daily. She at one point said that she had been on Neurontin and it worked well for her. We considered changing the Depakote that she is currently on back to the Neurontin but she decided to leave the Depakote where it is. She feels that her medications are working well and does not want to change other than the addition of the prazosin. She still has some suicidal ideation periodically. She continues to be depressed. She says she wants to have a house and a job that would consider going back to a transitional living situation where she was previously. She said that she was in that facility for over a year and then met a donnell and left with him but that did not work and she became suicidal and he called the police. Mental Status Exam MSE Comments: This is an overweight obese white female in hospital scrubs with colorful hair and adequate grooming and eye contact. No abnormal movements. Psychomotor activity is normal cooperative with exam in no acute distress. Speech was more normal rate and volume. Mood described as depressed, affect congruent. Thought process, organized. Thought content: reports episodic suicidal ideation but no homicidal ideation, no delusions reported or noted, and denies any auditory or visual hallucinations. Attention and concentration are intact and memory is reliable though none were formally tested. She is alert and oriented three times. Insight and judgment are limited. Impulse control is impaired.? Intellectual abilities are limited. Cognition: Patient Appearance: Appropriate Level of Consciousness: Awake and Alert Patient Cognition Impaired: No Ability to Follow Directions: Good Patient Orientation (long list): Person, Place, Time, Name and Age Comprehension Ability: Mild Impairment Hallucination Type: Auditory and Visual Delusion Description: Not Present Thought Process: Appropriate Affect: Affect Description: Appropriate and Calm Behavior: Patient Behavior: Appropriate Speech Pattern: Appropriate and Clear Vitals/I&O/Wt Last Vital Signs Temp 98.0 F 04/01/22 14:00 Pulse 77 04/01/22 14:00 Resp 17 04/01/22 14:00 BP 110/71 04/01/22 14:00 Pulse Ox 98 04/01/22 14:00 Data NPU : 03/24/22 22:50 03/24/22 22:50 A&P Assessment and plan (1) Sexually transmitted disease (STD): Status: Acute (2) Unprotected sexual intercourse: Status: Acute (3) Cannabis use disorder, severe, dependence: Status: Acute (4) Alcohol use disorder, moderate, dependence: Status: Acute (5) Major depressive disorder: Status: Acute (6) PTSD (post-traumatic stress disorder): Status: Acute (7) Cluster B personality disorder in adult: Status: Acute (8) Suicidal ideation: Status: Acute Plan This is a 22-year-old, white female, with post-traumatic stress disorder, depression, anxiety, rule out borderline personality disorder, who presents reporting that she has been off her medication since she left the hospital a week or two ago, and she is hoping to get them restarted and assistance in actually getting them so they can be effective once she leaves. RECOMMENDATION AND PLAN: 1. Continue current medication.? [place] 300 mg every morning and 600 mg at bedtime, Seroquel 100 mg and trazodone 50 mg at bedtime Depakote 750 mg twice daily and add prazosin 2 mg at bedtime. 2. Encourage individual, group, and milieu therapy. 3. Continue q-15 minute checks for safety. 4. Encourage sober living treatment after discharge, at the highest level of care, to which she is willing to commit. 5. ?We obtained studies and results for lab work.? Hospitalist consult was requested for positive results, treatment and counseling.? Thank you for hospitalist consult and will follow recommendations for treatment as indicated. 6. ? Significant concerns exist about her sexual promiscuity and her never having succeeded outside of the residential setting and her risk for danger if discharged to a usp or any other unsupervised setting.? Patient was willing to sign into the hospital understanding the dangers she presents herself unsupervised/unstructured. 7. ? If information is not available we will personally call the hospital morning and talk to [facility] administration about their inappropriate use of HIPAA causing undue limitations on care. Involuntary Hold Information 96 Hour Hold: 96 Hour Involuntary Admission: Yes 96 Hour Hold Ending Date: 03/30/22 96 Hour Hold Ending Time: 23:00 Attestations NPU Medical Necessity Statement*: Inpatient hospitalization is medically necessary and the clinically appropriate intervention at this time. We will initiate medications and make changes as indicated. Coding Level of Care Code Acute Negative Checker for g Fwd Diagnoses Sexually transmitted disease (STD) A64 Unprotected sexual intercourse Z72.51 Cannabis use disorder, severe, dependence F12.20 Alcohol use disorder, moderate, dependence F10.20 Major depressive disorder F32.9 PTSD (post-traumatic stress disorder) F43.10 Cluster B personality disorder in adult F60.9 Suicidal ideation R45.851
[2022-04-01] MEDS: lithium carbonate 300 mg Capsule 600 MG PO (20:25)
[2022-04-01] MEDS: quetiapine 100 mg Tablet PO (20:25)
[2022-04-01 21:43] VITALS: BP 113/70; PULSE 66; RESP 18; TEMP 37.1; O2SAT 100
[2022-04-02] MEDS: lithium carbonate 300 mg Capsule PO (05:45)
[2022-04-02 06:00] VITALS: BP 121/73; PULSE 66; RESP 16; TEMP 36.7; O2SAT 97
[2022-04-02] MEDS: thiamine 100 mg Tablet PO (09:49)
[2022-04-02] MEDS: divalproex ER 500 mg Tablet (24H) PO ×2 (09:49→17:17)
[2022-04-02] MEDS: multivitamin therapeutic Tablet 1 TAB PO (09:49)
[2022-04-02] MEDS: folic acid 1 mg Tablet PO (09:49)
[2022-04-02 14:00] VITALS: BP 128/87; PULSE 78; RESP 18; TEMP 36.6; O2SAT 98
[2022-04-02 19:24] VITALS: BP 126/71; PULSE 56; RESP 16; TEMP 37.1; O2SAT 98
[2022-04-02] MEDS: lithium carbonate 300 mg Capsule 600 MG PO (20:28)
[2022-04-02] MEDS: quetiapine 100 mg Tablet PO (20:29)
[2022-04-03 06:00] VITALS: BP 101/66; PULSE 67; RESP 16; TEMP 36.9; O2SAT 99
[2022-04-03] MEDS: lithium carbonate 300 mg Capsule PO (06:04)
--- NOTE | 2022-04-03 08:33 | PC.NURSE ---
AROUSES TO VOICE, ASSESSMENT COMPLETED. DENIES PAIN. DENIES SI/HI AND VH. 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 ASKED PT IF VOICES WERE NEGATIVE, PT STATES NO . SUPPORT VOICED.
[2022-04-03] MEDS: folic acid 1 mg Tablet PO (08:51)
[2022-04-03] MEDS: nicotine 2 mg Gum BUCCAL (08:51)
[2022-04-03] MEDS: divalproex ER 250 mg Tablet (24H) PO ×2 (08:51→18:26)
[2022-04-03] MEDS: divalproex ER 500 mg Tablet (24H) PO ×2 (08:51→18:26)
[2022-04-03] MEDS: multivitamin therapeutic Tablet 1 TAB PO (08:51)
[2022-04-03] MEDS: thiamine 100 mg Tablet PO (08:51)
--- NOTE | 2022-04-03 11:54 | P.NPUPN_ITS ---
Subjective NPU Subjective: She says that she is doing better. She feels like her medications are good and she would like to continue taking them unchanged other than increase the Depakote to 750 mg twice a day which was what her previous dose was. She is sleeping well. The rn social services called the facility where she used to live and they will not accept her because of her marijuana use. Other places have rejected her because of her having sex on the unit here. She said the rn social services is going to contact her women's facility on Tuesday. Mental Status Exam MSE Comments: This is an overweight obese white female in hospital scrubs with colorful hair and adequate grooming and eye contact. No abnormal movements. Ps ychomotor activity is normal cooperative with exam in no acute distress. Speech was more normal rate and volume. Mood described as depressed, affect congruent. Thought process, organized. Thought content: She denies suicidal ideation in the last 24 hours but no homicidal ideation, no delusions reported or noted, and denies any auditory or visual hallucinations. Attention and concentration are intact and memory is reliable though none were formally tested. She is alert and oriented three times. Insight and judgment are limited. Impulse control is impaired.? Intellectual abilities are limited. Cognition: Patient Appearance: Disheveled/Poor Hygiene Level of Consciousness: Awake and Alert Patient Cognition Impaired: No Ability to Follow Directions: Good Patient Orientation (long list): Person, Place, Time, Name, Age and Birthday Comprehension Ability: Mild Impairment Hallucination Type: Auditory Delusion Description: Not Present Thought Process: Circumstantial and Flight of Ideas Affect: Affect Description: Depressed, Flat and Guarded Behavior: Patient Behavior: Appropriate and Cooperative Speech Pattern: Appropriate and Clear Vitals/I&O/Wt Last Vital Signs Temp 98.4 F 04/03/22 06:00 Pulse 67 04/03/22 06:00 Resp 16 04/03/22 06:00 BP 101/66 04/03/22 06:00 Pulse Ox 99 04/03/22 06:00 04/02/22 04/03/22 04/03/22 22:59 06:59 14:59 Intake Total 320 / 800 Balance 320 / 800 Data NPU : 03/24/22 22:50 03/24/22 22:50 A&P Assessment and plan (1) Sexually transmitted disease (STD): Status: Acute (2) Unprotected sexual intercourse: Status: Acute (3) Cannabis use disorder, severe, dependence: Status: Acute (4) Alcohol use disorder, moderate, dependence: Status: Acute (5) Major depressive disorder: Status: Acute (6) PTSD (post-traumatic stress disorder): Status: Acute (7) Cluster B personality disorder in adult: Status: Acute (8) Suicidal ideation: Status: Acute Plan This is a 22-year-old, white female, with post-traumatic stress disorder, depression, anxiety, rule out borderline personality disorder, who presents reporting that she has been off her medication since she left the hospital a week or two ago, and she is hoping to get them restarted and assistance in actually getting them so they can be effective once she leaves. RECOMMENDATION AND PLAN: 1. Continue current medication.? [place] 300 mg every morning and 600 mg at bedtime, Seroquel 100 mg and trazodone 50 mg at bedtime Depakote 750 mg twice daily and add prazosin 2 mg at bedtime. 2. Encourage individual, group, and milieu therapy. 3. Continue q-15 minute checks for safety. 4. Encourage sober living treatment after discharge, at the highest level of care, to which she is willing to commit. 5. ?We obtained studies and results for lab work.? Hospitalist consult was requested for positive results, treatment and counseling.? Thank you for hospitalist consult and will follow recommendations for treatment as indicated. 6. ? Significant concerns exist about her sexual promiscuity and her never having succeeded outside of the residential setting and her risk for danger if discharged to a senior care or any other unsupervised setting.? Patient was willing to sign into the hospital understanding the dangers she presents herself unsupervised/unstructured. 7. ? If information is not available we will personally call the hospital morning and talk to [facility] administration about their inappropriate use of HIPAA causing undue limitations on care. Involuntary Hold Information 96 Hour Hold: 96 Hour Involuntary Admission: Yes 96 Hour Hold Ending Date: 03/30/22 96 Hour Hold Ending Time: 23:00 Attestations NPU Medical Necessity Statement*: Inpatient hospitalization is medically necessary and the clinically appropriate intervention at this time. We will initiate medications and make changes as indicated. Coding Level of Care Code Acute Automotive Welder for Eliseo Rodriguez Diagnoses Sexually transmitted disease (STD) A64 Unprotected sexual intercourse Z72.51 Cannabis use disorder, severe, dependence F12.20 Alcohol use disorder, moderate, dependence F10.20 Major depressive disorder F32.9 PTSD (post-traumatic stress disorder) F43.10 Cluster B personality disorder in adult F60.9 Suicidal ideation R45.851
[2022-04-03 14:00] VITALS: BP 101/66; PULSE 67; RESP 16; TEMP 36.9; O2SAT 99
[2022-04-03 20:00] VITALS: BP 127/85; PULSE 72; RESP 18; TEMP 36.7; O2SAT 97
[2022-04-03] MEDS: prazosin 1 mg Capsule 2 MG PO (20:19)
[2022-04-03] MEDS: lithium carbonate 300 mg Capsule 600 MG PO (20:19)
[2022-04-03] MEDS: quetiapine 100 mg Tablet PO (20:19)
[2022-04-04 06:00] VITALS: BP 96/61; PULSE 70; RESP 17; TEMP 36.7; O2SAT 96; BMI 35.6
[2022-04-04] MEDS: lithium carbonate 300 mg Capsule PO (06:18)
[2022-04-04] MEDS: divalproex ER 500 mg Tablet (24H) PO ×2 (08:12→17:59)
[2022-04-04] MEDS: multivitamin therapeutic Tablet 1 TAB PO (08:12)
[2022-04-04] MEDS: divalproex ER 250 mg Tablet (24H) PO ×2 (08:12→17:59)
[2022-04-04] MEDS: folic acid 1 mg Tablet PO (08:13)
[2022-04-04] MEDS: thiamine 100 mg Tablet PO (08:13)
--- NOTE | 2022-04-04 11:00 | P.NPUPN_ITS ---
Subjective NPU Subjective: She says that she is doing well. About the same. We are still looking for her a place to stay. She has some redness in her umbilicus. She says that has happened before and they gave her some ointment. Mental Status Exam MSE Comments: This is an overweight obese white female in hospital scrubs with colorful hair and adequate grooming and eye contact. No abnormal movements. Psychomotor activity is normal cooperative with exam in no acute distress. Speech was more normal rate and volume. Mood described as depressed, affect congruent. Thought process, organized. Thought content: She denies suicidal ideation in the last 24 hours but no homicidal ideation, no delusions reported or noted, and denies any auditory or visual hallucinations. Attention and concentration are intact and memory is reliable though none were formally tested. She is alert and oriented three times. Insight and judgment are limited. Impulse control is impaired.? Intellectual abilities are limited. Cognition: Patient Appearance: Appropriate Level of Consciousness: Awake and Alert Patient Cognition Impaired: No Ability to Follow Directions: Good Patient Orientation (long list): Person, Place, Time, Name, Age and Birthday Comprehension Ability: Mild Impairment Hallucination Type: None Delusion Description: Not Present Thought Process: Circumstantial Affect: Affect Description: Depressed, Flat and Guarded Behavior: Patient Behavior: Appropriate and Cooperative Speech Pattern: Appropriate and Clear Vitals/I&O/Wt Last Vital Signs Temp 98.0 F 04/04/22 06:00 Pulse 70 04/04/22 06:00 Resp 17 04/04/22 06:00 BP 96/61 04/04/22 06:00 Pulse Ox 96 04/04/22 06:00 Weight last 48 hrs Weight 98.543 kg Data NPU : 03/24/22 22:50 03/24/22 22:50 A&P Assessment and plan (1) Sexually transmitted disease (STD): Status: Acute (2) Unprotected sexual intercourse: Status: Acute (3) Cannabis use disorder, severe, dependence: Status: Acute (4) Alcohol use disorder, moderate, dependence: Status: Acute (5) Major depressive disorder: Status: Acute (6) PTSD (post-traumatic stress disorder): Status: Acute (7) Cluster B personality disorder in adult: Status: Acute (8) Suicidal ideation: Status: Acute Plan This is a 22-year-old, white female, with post-traumatic stress disorder, depression, anxiety, rule out borderline personality disorder, who presents reporting that she has been off her medication since she left the hospital a week or two ago, and she is hoping to get them restarted and assistance in actually getting them so they can be effective once she leaves. RECOMMENDATION AND PLAN: 1. Continue current medication.? [place] 300 mg every morning and 600 mg at bed time, Seroquel 100 mg and trazodone 50 mg at bedtime Depakote 750 mg twice daily and add prazosin 2 mg at bedtime. 2. Encourage individual, group, and milieu therapy. 3. Continue q-15 minute checks for safety. 4. Encourage sober living treatment after discharge, at the highest level of care, to which she is willing to commit. 5. ?We obtained studies and results for lab work.? Hospitalist consult was requested for positive results, treatment and counseling.? Thank you for hospitalist consult and will follow recommendations for treatment as indicated. 6. ? Significant concerns exist about her sexual promiscuity and her never h aving succeeded outside of the residential setting and her risk for danger if discharged to a [facility] or any other unsupervised setting.? Patient was willing to sign into the hospital understanding the dangers she presents herself unsupervised/unstructured. 7. ? If information is not available we will personally call the hospital morning and talk to [facility] administration about their inappropriate use of HIPAA causing undue limitations on care. Involuntary Hold Information 96 Hour Hold: 96 Hour Involuntary Admission: Yes 96 Hour Hold Ending Date: 03/30/22 96 Hour Hold Ending Time: 23:00 Attestations U Medical Necessity Statement*: Inpatient hospitalization is medically necessary and the clinically appropriate intervention at this time. We will initiate medications and make changes as indicated. Coding Level of Care Code Acute Anatomic Pathology Assistant for [facility] Jennifer Diagnoses Sexually transmitted disease (STD) A64 Unprotected sexual intercourse Z72.51 Cannabis use disorder, severe, dependence F12.20 Alcohol use disorder, moderate, dependence F10.20 Major depressive disorder F32.9 PTSD (post-traumatic stress disorder) F43.10 Cluster B personality disorder in adult F60.9 Suicidal ideation R45.851
[2022-04-04 13:15] VITALS: BP 120/81; PULSE 70; RESP 16; TEMP 36.8; O2SAT 97
[2022-04-04] MEDS: acetaminophen 325 mg Tablet 650 MG PO ×2 (14:54→20:46)
[2022-04-04] MEDS: nystatin cream 30 gm 1 APPLIC TOPICAL (18:05)
[2022-04-04] MEDS: prazosin 1 mg Capsule 2 MG PO (20:45)
[2022-04-04] MEDS: trazodone 50 mg Tablet PO (20:45)
[2022-04-04] MEDS: lithium carbonate 300 mg Capsule 600 MG PO (20:45)
[2022-04-04] MEDS: quetiapine 100 mg Tablet PO (20:45)
[2022-04-04 20:48] VITALS: BP 121/83; PULSE 58; RESP 16; TEMP 37.3; O2SAT 98
[2022-04-05 06:00] VITALS: BP 113/79; PULSE 61; RESP 18; TEMP 36.5; O2SAT 97
[2022-04-05] MEDS: lithium carbonate 300 mg Capsule PO (06:08)
[2022-04-05] MEDS: ondansetron 4 MG Tablet PO ×2 (06:09→11:55)
[2022-04-05] MEDS: divalproex ER 500 mg Tablet (24H) PO ×2 (09:18→20:37)
[2022-04-05] MEDS: multivitamin therapeutic Tablet 1 TAB PO (09:18)
[2022-04-05] MEDS: folic acid 1 mg Tablet PO (09:19)
[2022-04-05] MEDS: nystatin cream 30 gm 1 APPLIC TOPICAL ×2 (09:19→22:52)
[2022-04-05] MEDS: divalproex ER 250 mg Tablet (24H) PO ×2 (09:19→20:37)
[2022-04-05] MEDS: thiamine 100 mg Tablet PO (09:19)
--- NOTE | 2022-04-05 11:54 | P.NPUPN_ITS ---
Subjective NPU Subjective: We are still waiting to find placement for her. She complains of upper abdominal pain and difficulty breathing because of the pain today. She says it is not as bad as it was before but it is similar to when she had the STD previously. It was treated with a one-time treatment. She wanted to be tested again to make sure that it is gone. The yeast in her umbilicus seems to be somewhat improved. Her depression is better and she denies suicidal ideation. Mental Status Exam MSE Comments: This is an overweight obese white female in hospital scrubs with colorful hair and adequate grooming and eye contact. No abnormal movements. Psychomotor activity is normal cooperative with exam in no acute distress. Speech was more normal rate and volume. Mood described as depressed, affect congruent. Thought process, organized. Thought content: She denies suicidal ideation in the last 24 hours but no homicidal ideation, no delusions reported or noted, and denies any auditory or visual hallucinations. Attention and concentration are intact and memory is reliable though none were formally tested. She is alert and oriented three times. Insight and judgment are limited. Impulse control is impaired.? Intellectual abilities are limited. Cognition: Patient Appearance: Appropriate Level of Consciousness: Awake and Alert Patient Cognition Impaired: No Ability to Follow Directions: Good Patient Orientation (long list): Person, Place, Time, Name, Age, Birthday, Day of Week, Month, Time of Day and Year Comprehension Ability: Mild Impairment Hallucination Type: None Delusion Description: Not Present Thought Process: Appropriate Affect: Affect Description: Appropriate and Calm Behavior: Patient Behavior: Appropriate and Cooperative Speech Pattern: Appropriate and Clear Vitals/I&O/Wt Last Vital Signs Temp 97.7 F 04/05/22 06:00 Pulse 61 04/05/22 06:00 Resp 18 04/05/22 06:00 BP 113/79 04/05/22 06:00 Pulse Ox 97 04/05/22 06:00 Weight last 48 hrs Weight 98.543 kg Data NPU : 03/24/22 22:50 03/24/22 22:50 A&P Assessment and plan (1) Sexually transmitted disease (STD): Status: Acute (2) Unprotected sexual intercourse: Status: Acute (3) Cannabis use disorder, severe, dependence: Status: Acute (4) Alcohol use disorder, moderate, dependence: Status: Acute (5) Major depressive disorder: Status: Acute (6) PTSD (post-traumatic stress disorder): Status: Acute (7) Cluster B personality disorder in adult: Status: Acute (8) Suicidal ideation: Status: Acute Plan This is a 22-year-old, white female, with post-traumatic stress disorder, depression, anxiety, rule out borderline personality disorder, who presents reporting that she has been off her medication since she left the hospital a week or two ago, and she is hoping to get them restarted and assistance in actually getting them so they can be effective once she leaves. RECOMMENDATION AND PLAN: 1. Continue current medication.? [place] 300 mg every morning and 600 mg at bedtime, Seroquel 100 mg and trazodone 50 mg at bedtime Depakote 750 mg twice daily and add prazosin 2 mg at bedtime. 2. Encourage individual, group, and milieu therapy. 3. Continue q-15 minute checks for safety. 4. Encourage sober living treatment after discharge, at the highest level of care, to which she is willing to commit. 5. ?We obtained studies and results for lab work.? Hospitalist consult was requested for positive results, treatment and counseling.? Thank you for hospitalist consult and will follow recommendations for treatment as indicated. 6. ? Significant concerns exist about her sexual promiscuity and her never having succeeded outside of the residential setting and her risk for danger if discharged to a halfway or any other unsupervised setting.? Patient was willing to sign into the hospital understanding the dangers she presents herself unsupervised/unstructured. 7. ? If information is not available we will personally call the hospital morning and talk to [facility] administration about their inappropriate use of HIPAA causing undue limitations on care. Involuntary Hold Information 96 Hour Hold: 96 Hour Involuntary Admission: Yes 96 Hour Hold Ending Date: 03/30/22 96 Hour Hold Ending Time: 23:00 Attestations NPU Medical Necessity Statement*: Inpatient hospitalization is medically necessary and the clinically appropriate intervention at this time. We will initiate medications and make changes as indicated. Coding Level of Care Code Acute Snack Bar Attendant for Luis Antonio Fwd Diagnoses Sexually transmitted disease (STD) A64 Unprotected sexual intercourse Z72.51 Cannabis use disorder, severe, dependence F12.20 Alcohol use disorder, moderate, dependence F10.20 Major depressive disorder F32.9 PTSD (post-traumatic stress disorder) F43.10 Cluster B personality disorder in adult F60.9 Suicidal ideation R45.948
[2022-04-05 14:00] VITALS: BP 139/96; PULSE 75; RESP 16; TEMP 37; O2SAT 99
[2022-04-05] MEDS: acetaminophen 325 mg Tablet 650 MG PO (17:03)
--- NOTE | 2022-04-05 17:06 | PC.NURSE ---
Patient at nurses station with c/o right middle back pain and right anterior rib pain. Oxygen sat 98% on RA. Request for tylenol 650 mg po given.
[2022-04-05 19:35] VITALS: BP 111/75; PULSE 76; RESP 16; TEMP 37.7; O2SAT 97
[2022-04-05] MEDS: prazosin 1 mg Capsule 2 MG PO (20:37)
[2022-04-05] MEDS: quetiapine 100 mg Tablet PO (20:37)
[2022-04-05] MEDS: lithium carbonate 300 mg Capsule 600 MG PO (20:37)
[2022-04-06 06:00] VITALS: BP 124/79; PULSE 93; RESP 16; TEMP 37.1; O2SAT 97
[2022-04-06] MEDS: lithium carbonate 300 mg Capsule PO (06:08)
[2022-04-06] MEDS: divalproex ER 250 mg Tablet (24H) PO ×2 (08:44→20:28)
[2022-04-06] MEDS: folic acid 1 mg Tablet PO (08:44)
[2022-04-06] MEDS: multivitamin therapeutic Tablet 1 TAB PO (08:44)
[2022-04-06] MEDS: nystatin cream 30 gm 1 APPLIC TOPICAL (08:44)
[2022-04-06] MEDS: thiamine 100 mg Tablet PO (08:44)
[2022-04-06] MEDS: divalproex ER 500 mg Tablet (24H) PO ×2 (08:44→20:28)
[2022-04-06] MEDS: acetaminophen 325 mg Tablet 650 MG PO ×2 (12:44→20:30)
[2022-04-06 13:42] LABS: HCG, Serum Qual Negative (Negative)
[2022-04-06 14:00] VITALS: BP 107/69; PULSE 94; RESP 18; TEMP 36.6; O2SAT 97
--- NOTE | 2022-04-06 15:23 | P.NPUPN_ITS ---
Subjective NPU Subjective: She continues to be depressed. We are still working on disposition. She complains of abdominal and back pain. She said it is a similar before her STD was treated. Her urine was still positive for DNA for chlamydia. The hospitalist recommends a HEALTH INFORMATION DIRECTOR consult. Mental Status Exam MSE Comments: This is an overweight obese white female in hospital scrubs with colorful hair and adequate grooming and eye contact. No abnormal movements. Psychomotor activity is normal cooperative with exam in no acute distress. Speech was more normal rate and volume. Mood described as depressed, affect congruent. Thought process, organized. Thought content: She denies suicidal ideation in the last 24 hours but no homicidal ideation, no delusions reported or noted, and denies any auditory or visual hallucinations. Attention and concentration are intact and memory is reliable though none were formally tested. She is alert and oriented three times. Insight and judgment are limited. Impulse control is impaired.? Intellectual abilities are limited. Cognition: Patient Appearance: Appropriate Level of Consciousness: Awake and Alert Patient Cognition Impaired: No Ability to Follow Directions: Good Patient Orientation (long list): Person, Place, Time, Name, Age, Birthday, Day of Week, Month, Time of Day and Year Comprehension Ability: Mild Impairment Hallucination Type: None Delusion Description: Not Present Thought Process: Appropriate Affect: Affect Description: Flat Behavior: Patient Behavior: Withdrawn Speech Pattern: Clear Vitals/I&O/Wt Last Vital Signs Temp 98 F 04/06/22 14:00 Pulse 94 04/06/22 14:00 Resp 18 04/06/22 14:00 BP 107/69 04/06/22 14:00 Pulse Ox 97 04/06/22 14:00 Data NPU : 03/24/22 22:50 03/24/22 22:50 Micro: Microbiology 04/05/22 12:40 Chlamydia trachomatis (DANK) - Final Urine Random Neisseria gonorrhoeae (DANK) - Final Trichomonas vaginalis (DANK - Final Microbiology 04/05/22 12:40 Urine Random Chlamydia trachomatis (DANK) - Final 04/05/22 12:40 Urine Random Neisseria gonorrhoeae (DANK) - Final 04/05/22 12:40 Urine Random Trichomonas vaginalis (DANK - Final A&P Assessment and plan (1) Sexually transmitted disease (STD): Status: Acute (2) Unprotected sexual intercourse: Status: Acute (3) Cannabis use disorder, severe, dependence: Status: Acute (4) Alcohol use disorder, moderate, dependence: Status: Acute (5) Major depressive disorder: Status: Acute (6) PTSD (post-traumatic stress disorder): Status: Acute (7) Cluster B personality disorder in adult: Status: Acute (8) Suicidal ideation: Status: Acute Plan This is a 22-year-old, white female, with post-traumatic stress disorder, depression, anxiety, rule out borderline personality disorder, who presents reporting that she has been off her medication since she left the hospital a week or two ago, and she is hoping to get them restarted and assistance in act ually getting them so they can be effective once she leaves. RECOMMENDATION AND PLAN: 1. Continue current medication.? [place] 300 mg every morning and 600 mg at bedtime, Seroquel 100 mg and trazodone 50 mg at bedtime Depakote 750 mg twice daily and add prazosin 2 mg at bedtime. 2. Encourage individual, group, and milieu therapy. 3. Continue q-15 minute checks for safety. 4. Encourage sober living treatment after discharge, at the highest level of care, to which she is willing to commit. 5. ?We obtained studies and results for lab work.? Hospitalist consult was requested for positive results, treatment and counseling.? Thank you for hospitalist consult and will follow recommendations for treatment as indicated. 6. ? Significant concerns exist about her sexual promiscuity and her never having succeeded outside of the residential setting and her risk for danger if discharged to a group home or any other unsupervised setting.? Patient was willing to sign into the hospital understanding the dangers she presents herself unsupervised/unstructured. 7. ? If information is not available we will personally call the hospital morning and talk to [facility] administration about their inappropriate use of HIPAA causing undue limitations on care. Involuntary Hold Information 96 Hour Hold: 96 Hour Involuntary Admission: Yes 96 Hour Hold Ending Date: 03/30/22 96 Hour Hold Ending Time: 23:00 Attestations NPU Medical Necessity Statement*: Inpatient hospitalization is medically necessary and the clinically appropriate intervention at this time. We will initiate medications and make changes as indicated. Coding Level of Care Code Acute Nick Setter for Eliseo Rodriguez Diagnoses Sexually transmitted disease (STD) A64 Unprotected sexual intercourse Z72.51 Cannabis use disorder, severe, dependence F12.20 Alcohol use disorder, moderate, dependence F10.20 Major depressive disorder F32.9 PTSD (post-traumatic stress disorder) F43.10 Cluster B personality disorder in adult F60.9 Suicidal ideation R45.851
[2022-04-06 20:11] VITALS: BP 114/73; PULSE 86; RESP 18; TEMP 38.1; O2SAT 99
[2022-04-06] MEDS: lithium carbonate 300 mg Capsule 600 MG PO (20:28)
[2022-04-06] MEDS: quetiapine 100 mg Tablet PO (20:28)
[2022-04-06] MEDS: prazosin 1 mg Capsule 2 MG PO (20:28)
[2022-04-07] MEDS: lithium carbonate 300 mg Capsule PO (05:54)
[2022-04-07 06:00] VITALS: BP 114/74; PULSE 77; RESP 16; TEMP 37.1; O2SAT 98
[2022-04-07] MEDS: nicotine 2 mg Gum BUCCAL (09:01)
[2022-04-07] MEDS: thiamine 100 mg Tablet PO (09:01)
[2022-04-07] MEDS: folic acid 1 mg Tablet PO (09:01)
[2022-04-07] MEDS: divalproex ER 250 mg Tablet (24H) PO ×2 (09:01→20:27)
[2022-04-07] MEDS: multivitamin therapeutic Tablet 1 TAB PO (09:01)
[2022-04-07] MEDS: divalproex ER 500 mg Tablet (24H) PO ×2 (09:01→20:27)
--- NOTE | 2022-04-07 12:24 | W.PM.NPUPNS ---
Subjective NPU Subjective: She says that she is doing relatively well. She is not having nightmares. She is not suicidal today. She continues to have abdominal pain and her accounts officer is going to come and see her this afternoon. We are still looking for a placement for her. Mental Status Exam MSE Comments: This is an overweight obese white female in hospital scrubs with colorful hair and adequate grooming and eye contact. No abnormal movements. Psychomotor activity is normal cooperative with exam in no acute distress. Speech was more normal rate and volume. Mood described as depressed, affect congruent. Thought process, organized. Thought content: She denies suicidal ideation in the last 24 hours and no homicidal ideation, no delusions reported or noted, and denies any auditory or visual hallucinations. Attention and concentration are intact and memory is reliable though none were formally tested. She is alert and oriented three times. Insight and judgment are limited. Impulse control is impaired.? Intellectual abilities are limited. Cognition: Patient Appearance: Appropriate Level of Consciousness: Awake and Alert Patient Cognition Impaired: No Ability to Follow Directions: Good Patient Orientation (long list): Person, Place, Time, Name, Age, Birthday, Day of Week, Month, Time of Day and Year Comprehension Ability: Mild Impairment Hallucination Type: None Delusion Description: Not Present Thought Process: Appropriate Affect: Affect Description: Flat Behavior: Patient Behavior: Cooperative and Somatic Speech Pattern: Appropriate and Clear Vitals/I&O/Wt Last Vital Signs Temp 98.8 F 04/07/22 06:00 Pulse 77 04/07/22 06:00 Resp 16 04/07/22 06:00 BP 114/74 04/07/22 06:00 Pulse Ox 98 04/07/22 06:00 Data NPU : 03/24/22 22:50 03/24/22 22:50 Micro: Microbiology 04/05/22 12:40 Chlamydia trachomatis (DANK) - Final Urine Random Neisseria gonorrhoeae (DANK) - Final Trichomonas vaginalis (DANK - Final Microbiology 04/05/22 12:40 Urine Random Chlamydia trachomatis (DANK) - Final 04/05/22 12:40 Urine Random Neisseria gonorrhoeae (DANK) - Final 04/05/22 12:40 Urine Random Trichomonas vaginalis (DANK - Final A&P Assessment and plan (1) Sexually transmitted disease (STD): Status: Acute (2) Unprotected sexual intercourse: Status: Acute (3) Cannabis use disorder, severe, dependence: Status: Acute (4) Alcohol use disorder, moderate, dependence: Status: Acute (5) Major depressive disorder: Status: Acute (6) PTSD (post-traumatic stress disorder): Status: Acute (7) Cluster B personality disorder in adult: Status: Acute (8) Suicidal ideation: Status: Acute Plan This is a 22-year-old, white female, with post-traumatic stress disorder, depression, anxiety, rule out borderline personality disorder, who presents reporting that she has been off her medication since she left the hospital a week or two ago, and she is hoping to get them restarted and assistance in actually getting them so they can be effective once she leaves. RECOMMENDATION AND PLAN: 1. Continue current medication.? [place] 300 mg every morning and 600 mg at bedtime, Seroquel 100 mg and trazodone 50 mg at bedtime Depakote 750 mg twice daily and add prazosin 2 mg at bedtime. 2. Encourage individual, group, and milieu therapy. 3. Continue q-15 minute checks for safety. 4. Encourage sober living treatment after discharge, at the highest level of care, to which she is willing to commit. 5. ?We obtained studies and results for lab work.? Hospitalist consult was requested for positive results, treatment and counseling.? Thank you for hospitalist consult and will follow recommendations for treatment as indicated. 6. ? Significant concerns exist about her sexual promiscuity and her never having succeeded outside of the residential setting and her risk for danger if discharged to a [facility] or any other unsupervised setting.? Patient was willing to sign into the hospital understanding the dangers she presents herself unsupervised/unstructured. 7. ? If information is not available we will personally call the hospital morning and talk to [facility] administration about their inappropriate use of HIPAA causing undue limitations on care. Involuntary Hold Information 96 Hour Hold: 96 Hour Involuntary Admission: Yes 96 Hour Hold Ending Date: 03/30/22 96 Hour Hold Ending Time: 23:00 Attestations NPU Medical Necessity Statement*: Inpatient hospitalization is medically necessary and the clinically appropriate intervention at this time. We will initiate medications and make changes as indicated. Coding Level of Care Code Acute Turbine Measurements Engineer for Eliseo Rodriguez Diagnoses Sexually transmitted disease (STD) A64 Unprotected sexual intercourse Z72.51 Cannabis use disorder, severe, dependence F12.20 Alcohol use disorder, moderate, dependence F10.20 Major depressive disorder F32.9 PTSD (post-traumatic stress disorder) F43.10 Cluster B personality disorder in adult F60.9 Suicidal ideation R45.851
[2022-04-07 14:00] VITALS: BP 110/71; PULSE 75; RESP 17; TEMP 36.7; O2SAT 96
--- NOTE | 2022-04-07 17:33 | P.CONIM_ITS ---
Providers/Reason For Consult Consulting Physician/Specialty*: secondary history teacher Reason for Consult*: vaginal discharge, abdominal pain Attending Physician: Wilmer Montelongo MD History of Present Illness History of Present Illness Lori Richard is a 22 year old female who was diagnosed with chlamydia about a week ago. She was treated. she complained of new onset vaginal discharge this morning, as well as RUQ pain that radiates to her back. Review of Systems General: Reports: 10 or more systems reviewed and unremarkable except in HPI and below Medications/Allergies Home Medications Medication Instructions Recorded Confirmed Last Taken Type No Known Home Medications 03/25/22 03/25/22 Unknown History Allergies Allergy/AdvReac Type Severity Reaction Status Date / Time No Known Allergies Allergy Verified 03/24/22 22:47 Current Medications Generic Name Dose Route Start Last Admin Trade Name Freq PRN Reason Stop Dose Admin Acetaminophen 650 mg 03/25/22 00:53 04/06/22 20:30 Acetaminophen 325 Mg Tablet PO 650 mg Q4H PRN Administration MILD PAIN Divalproex Sodium 250 mg 04/05/22 21:00 04/07/22 09:01 Divalproex Er 250 Mg Tablet (24h) PO 250 mg 0900,2100 AUBREY Administration Divalproex Sodium 500 mg 04/05/22 21:00 04/07/22 09:01 Divalproex Er 500 Mg Tablet (24h) PO 500 mg 0900,2100 AUBREY Administration Folic Acid 1 mg 03/25/22 09:00 04/07/22 09:01 Folic Acid 1 Mg Tablet PO 1 mg DAILY AUBREY Administration Hydroxyzine Pamoate 50 mg 03/25/22 00:50 03/30/22 10:41 Hydroxyzine 25 Mg Capsule PO 50 mg Q6H PRN Administration ANXIETY [place] Carbonate 600 mg 03/31/22 21:00 04/06/22 20:28 [place] Carbonate 300 Mg Capsule PO 600 mg BEDTIME AUBREY Administration [place] Carbonate 300 mg 04/02/22 06:00 04/07/22 05:54 [place] Carbonate 300 Mg Capsule PO 300 mg QAM AUBREY Administration Multivitamins Therapeutic 1 tab 03/25/22 09:00 04/07/22 09:01 Multivitamin Therapeutic Tablet PO 1 tab DAILY AUBREY Administration Nicotine Polacrilex 2 mg 03/25/22 00:50 04/07/22 09:01 Nicotine 2 Mg Gum BUCCAL 2 mg Q2H PRN Administration NICOTINE WITHDRAWAL Nystatin 1 applic 04/05/22 21:00 04/07/22 10:05 Nystatin Cream 30 Gm TOPICAL Not Given AUBREY Olanzapine 5 mg 03/25/22 00:50 03/26/22 01:15 Olanzapine 5 Mg Odt PO 5 mg Q4H PRN Administration Agitation/Psychosis Ondansetron HCl 4 mg 03/25/22 00:50 04/05/22 11:55 Ondansetron 4 Mg Tablet PO 4 mg Q6H PRN Administration NAUSEA AND VOMITING Prazosin HCl 2 mg 04/03/22 21:00 04/06/22 20:28 Prazosin 1 Mg Capsule PO 2 mg BEDTIME AUBREY Administration Promethazine HCl 50 mg 03/25/22 23:52 03/26/22 00:23 Promethazine 25 Mg/Ml Sdv 1 Ml IM 50 mg Q6H PRN Administration NAUSEA Quetiapine Fumarate 100 mg 03/31/22 21:00 04/06/22 20:28 Quetiapine 100 Mg Tablet PO 100 mg BEDTIME AUBREY Administration Thiamine Mononitrate 100 mg 03/25/22 09:00 04/07/22 09:01 Thiamine 100 Mg Tablet PO 100 mg DAILY AUBREY Administration Trazodone HCl 50 mg 03/27/22 19:44 04/04/22 20:45 Trazodone 50 Mg Tablet PO 50 mg BEDTIME PRN Administration INSOMNIA PFSH Acute PFSH: Medical History Psychiatric care Vitals/I&O/Wt Last Vital Signs Temp 98.1 F 04/07/22 14:00 Pulse 75 04/07/22 14:00 Resp 17 04/07/22 14:00 BP 110/71 04/07/22 14:00 Pulse Ox 96 04/07/22 14:00 Physical Exam Const: COMMON NORMALS: no acute distress, patient oriented x3, no limitations, healthy appearing, alert and well nourished GENERAL APPEARANCE: cooperative, comfortable, well kempt and well developed ORIENTATION/CONSCIOUSNESS: Yes awake, Yes oriented to person, Yes oriented to place and Yes oriented to time : EXTERNAL FEMALE EXAM: Yes erythema and Yes external swelling Extremity: COMMON NORMALS: no calf tenderness Neuro: COMMON NORMALS: patient oriented x3 SENSORIUM/ORIENTATION: Yes alert, Yes oriented to person, Yes oriented to place and Yes oriented to time Psych: APPEARANCE: Yes well kempt Data : 03/24/22 22:50 03/24/22 22:50 Micro: Microbiology 04/05/22 12:40 Chlamydia trachomatis (DANK) - Final Urine Random Neisseria gonorrhoeae (DANK) - Final Trichomonas vaginalis (DANK - Final A&P Assessment and plan (1) Vaginal itching: treat with diflucan Status: Acute (2) RUQ pain: galbladder u/s Status: Acute (3) Sexually transmitted disease (STD): pelvic u/s to rule out PID Patient does report that she got chlamydia about 2-3 weeks ago. Status: Acute Coding Level of Care Code Acute Cap Maker for [facility] Jennifer Diagnoses Vaginal itching N89.8 RUQ pain R10.11 Sexually transmitted disease (STD) A64
[2022-04-07 20:10] VITALS: BP 117/76; PULSE 81; RESP 17; TEMP 37.4; O2SAT 98
[2022-04-07] MEDS: quetiapine 100 mg Tablet PO (20:27)
[2022-04-07] MEDS: lithium carbonate 300 mg Capsule 600 MG PO (20:27)
[2022-04-07] MEDS: prazosin 1 mg Capsule 2 MG PO (20:27)
--- NOTE | 2022-04-08 00:02 | US_ITS ---
WS: [id number] Exam: US gall bladder [id number] Date/Time of Exam: 04/08/2022 12:03 AM Reason For Exam: upigastric pain Multiple shadowing stones as well as sludge like material noted in the gallbladder. The common bile d uct is normal in caliber measuring 2.1 mm at greatest diameter. There is thickening of the gallbladde r wall that might reflect chronic cholecystitis. No gallbladder wall edema or pericholecystic fluid w as seen. The liver is unremarkable. No intrahepatic ductal dilatation. The right kidney was unremarka ble. The pancreas is obscured by overlying bowel gas. US/US gall bladder [id number] IMPRESSION: 1. Cholelithiasis with sludge like material in the gallbladder. 2. Gallbladder wall thickening. The gallbladder amezquita measure about 3 mm at gre atest thickness which may indicate chronic gallbladder disease. There was no si gn of acute cholecystitis. No biliary dilatation was demonstrated.
[2022-04-08 06:00] VITALS: BP 107/68; PULSE 78; RESP 16; TEMP 37.1; O2SAT 98
[2022-04-08] MEDS: lithium carbonate 300 mg Capsule PO (06:39)
[2022-04-08] MEDS: divalproex ER 500 mg Tablet (24H) PO ×2 (09:54→20:13)
[2022-04-08] MEDS: multivitamin therapeutic Tablet 1 TAB PO (09:54)
[2022-04-08] MEDS: divalproex ER 250 mg Tablet (24H) PO ×2 (09:55→20:14)
[2022-04-08] MEDS: thiamine 100 mg Tablet PO (09:55)
[2022-04-08] MEDS: nystatin cream 30 gm 1 APPLIC TOPICAL (09:55)
[2022-04-08] MEDS: fluconazole 100 mg Tablet 150 MG PO (09:55)
[2022-04-08] MEDS: folic acid 1 mg Tablet PO (09:55)
[2022-04-08] MEDS: nicotine 2 mg Gum BUCCAL ×2 (09:55→18:04)
--- NOTE | 2022-04-08 12:47 | W.PM.NPUPNS ---
Subjective NPU Subjective: She says that she continues to do fairly well. She denies any suicidal ideation. She says the nightmares continue to be good. Her depression is generally controlled. She is bored being here. Mental Status Exam MSE Comments: This is an overweight obese white female in hospital scrubs with colorful hair and adequate grooming and eye contact. No abnormal movements. Psychomotor activity is normal cooperative with exam in no acute distress. Speech was more normal rate and volume. Mood described as mildly depressed, affect congruent. Thought process, organized. Thought content: She denies suicidal ideation recently and no homicidal ideation, no delusions reported or noted, and denies any auditory or visual hallucinations. Attention and concentration are intact and memory is reliable though none were formally tested. She is alert and oriented three times. Insight and judgment are limited. Impulse control is impaired.? Intellectual abilities are limited. Cognition: Patient Appearance: Appropriate Level of Consciousness: Awake and Alert Patient Cognition Impaired: No Ability to Follow Directions: Good Patient Orientation (long list): Person, Place, Time, Name, Age, Birthday, Day of Week and Month Comprehension Ability: Mild Impairment Hallucination Type: None Delusion Description: Not Present Thought Process: Appropriate Affect: Affect Description: Calm Behavior: Patient Behavior: Cooperative and Withdrawn Speech Pattern: Clear Vitals/I&O/Wt Last Vital Signs Temp 98.5 F 04/10/22 06:00 Pulse 71 04/10/22 06:00 Resp 18 04/10/22 06:00 BP 105/55 04/10/22 06:00 Pulse Ox 98 04/10/22 06:00 Data NPU : 03/24/22 22:50 03/24/22 22:50 A&P Assessment and plan (1) Sexually transmitted disease (STD): Status: Acute (2) Unprotected sexual intercourse: Status: Acute (3) Cannabis use disorder, severe, dependence: Status: Acute (4) Alcohol use disorder, moderate, dependence: Status: Acute (5) Major depressive disorder: Status: Acute (6) PTSD (post-traumatic stress disorder): Status: Acute (7) Cluster B personality disorder in adult: Status: Acute (8) Suicidal ideation: Status: Acute Plan This is a 22-year-old, white female, with post-traumatic stress disorder, depression, anxiety, rule out borderline personality disorder, who presents reporting that she has been off her medication since she left the hospital a week or two ago, and she is hoping to get them restarted and assistance in actually getting them so they can be effective once she leaves. RECOMMENDATION AND PLAN: 1. Continue current medication.? [place] 300 mg every morning and 600 mg at bedtime, Seroquel 100 mg and trazodone 50 mg at bedtime Depakote 750 mg twice daily and add prazosin 2 mg at bedtime. 2. Encourage individual, group, and milieu therapy. 3. Continue q-15 minute checks for safety. 4. Encourage sober living treatment after discharge, at the highest level of care, to which she is willing to commit. 5. ?We obtained studies and results for lab work.? Hospitalist consult was requested for positive results, treatment and counseling.? Thank you for hospitalist consult and will follow recommendations for treatment as indicated. 6. ? Significant concerns exist about her sexual promiscuity and her never having succeeded outside of the residential setting and her risk for danger if discharged to a senior living or any other unsupervised setting.? Patient was willing to sign into the hospital understanding the dangers she presents herself unsupervised/unstructured. 7. ? If information is not available we will personally call the hospital morning and talk to [facility] administration about their inappropriate use of HIPAA causing undue limitations on care. Involuntary Hold Information 96 Hour Hold: 96 Hour Involuntary Admission: Yes 96 Hour Hold Ending Date: 03/30/22 96 Hour Hold Ending Time: 23:00 Attestations U Medical Necessity Statement*: Inpatient hospitalization is medically necessary and the clinically appropriate intervention at this time. We will initiate medications and make changes as indicated. Coding Level of Care Code Acute Machine Records Units Supervisor for g Fwd Diagnoses Sexually transmitted disease (STD) A64 Unprotected sexual intercourse Z72.51 Cannabis use disorder, severe, dependence F12.20 Alcohol use disorder, moderate, dependence F10.20 Major depressive disorder F32.9 PTSD (post-traumatic stress disorder) F43.10 Cluster B personality disorder in adult F60.9 Suicidal ideation R45.851
[2022-04-08 14:00] VITALS: BP 108/72; PULSE 98; RESP 16; TEMP 36.9; O2SAT 98
[2022-04-08] MEDS: prazosin 1 mg Capsule 2 MG PO (20:13)
[2022-04-08] MEDS: lithium carbonate 300 mg Capsule 600 MG PO (20:13)
[2022-04-08] MEDS: quetiapine 100 mg Tablet PO (20:13)
[2022-04-08 20:36] VITALS: BP 112/75; PULSE 80; RESP 20; TEMP 37.1; O2SAT 98
[2022-04-09 06:00] VITALS: BP 102/70; PULSE 68; RESP 20; TEMP 36.8; O2SAT 96
[2022-04-09] MEDS: lithium carbonate 300 mg Capsule PO (06:05)
[2022-04-09] MEDS: multivitamin therapeutic Tablet 1 TAB PO (09:37)
[2022-04-09] MEDS: thiamine 100 mg Tablet PO (09:37)
[2022-04-09] MEDS: divalproex ER 250 mg Tablet (24H) PO ×2 (09:37→20:10)
[2022-04-09] MEDS: divalproex ER 500 mg Tablet (24H) PO ×2 (09:38→20:10)
[2022-04-09] MEDS: fluconazole 100 mg Tablet 150 MG PO (09:38)
[2022-04-09] MEDS: folic acid 1 mg Tablet PO (09:38)
[2022-04-09] MEDS: nicotine 2 mg Gum BUCCAL (09:38)
[2022-04-09] MEDS: nystatin cream 30 gm 1 APPLIC TOPICAL (10:03)
[2022-04-09 14:00] VITALS: BP 112/72; PULSE 80; RESP 16; TEMP 36.7; O2SAT 98
--- NOTE | 2022-04-09 14:15 | P.NPUPN_ITS ---
Subjective NPU Subjective: She said that her stomach feels a little better since she took the Protonix this morning before lunch. Her vaginal infection is also improving. She is sleeping well. She feels like her psychotropic medications are working well. We are still looking for placement. She denies nightmares since the prazosin 2 mg daily. Mental Status Exam MSE Comments: This is an overweight obese white female in hospital scrubs with colorful hair and adequate grooming and eye contact. No abnormal movements. P sychomotor activity is normal cooperative with exam in no acute distress. Speech was more normal rate and volume. Mood described as depressed, affect congruent. Thought process, organized. Thought content: She denies suicidal ideation recently and no homicidal ideation, no delusions reported or noted, and denies any auditory or visual hallucinations. Attention and concentration are intact and memory is reliable though none were formally tested. She is alert and oriented three times. Insight and judgment are limited. Impulse control is impaired.? Intellectual abilities are limited. Cognition: Patient Appearance: Appropriate Level of Consciousness: Awake and Alert Patient Cognition Impaired: No Ability to Follow Directions: Good Patient Orientation (long list): Person, Place, Time, Name, Age, Birthday, Day of Week and Month Comprehension Ability: Mild Impairment Hallucination Type: None Delusion Description: Not Present Thought Process: Appropriate Affect: Affect Description: Flat Behavior: Patient Behavior: Appropriate and Cooperative Speech Pattern: Appropriate and Clear Vitals/I&O/Wt Last Vital Signs Temp 98.2 F 04/09/22 06:00 Pulse 68 04/09/22 06:00 Resp 20 H 04/09/22 06:00 BP 102/70 04/09/22 06:00 Pulse Ox 96 04/09/22 06:00 04/08/22 04/09/22 04/09/22 22:59 06:59 14:59 Intake Total 320 / 320 Balance 320 / 320 Data NPU : 03/24/22 22:50 03/24/22 22:50 A&P Assessment and plan (1) Sexually transmitted disease (STD): Status: Acute (2) Unprotected sexual intercourse: Status: Acute (3) Cannabis use disorder, severe, dependence: Status: Acute (4) Alcohol use disorder, moderate, dependence: Status: Acute (5) Major depressive disorder: Status: Acute (6) PTSD (post-traumatic stress disorder): Status: Acute (7) Cluster B personality disorder in adult: Status: Acute (8) Suicidal ideation: Status: Acute Plan This is a 22-year-old, white female, with post-traumatic stress disorder, depression, anxiety, rule out borderline personality disorder, who presents reporting that she has been off her medication since she left the hospital a week or two ago, and she is hoping to get them restarted and assistance in actually getting them so they can be effective once she leaves. RECOMMENDATION AND PLAN: 1. Continue current medication.? [place] 300 mg every morning and 600 mg at bedtime, Seroquel 100 mg and trazodone 50 mg at bedtime Depakote 750 mg twice daily and add prazosin 2 mg at bedtime. 2. Encourage individual, group, and milieu therapy. 3. Continue q-15 minute checks for safety. 4. Encourage sober living treatment after discharge, at the highest level of care, to which she is willing to commit. 5. ?We obtained studies and results for lab work.? Hospitalist consult was requested for positive results, treatment and counseling.? Thank you for hospitalist consult and will follow recommendations for treatment as indicated. 6. ? Significant concerns exist about her sexual promiscuity and her never having succeeded outside of the residential setting and her risk for danger if discharged to a [place] [facility] [place] or any other unsupervised setting.? Patient was willing to sign into the hospital understanding the dangers she presents herself unsupervised/unstructured. 7. ? If information is not available we will personally call the hospital morning and talk to [facility] administration about their inappropriate use of HIPAA causing undue limitations on care. Involuntary Hold Information 96 Hour Hold: 96 Hour Involuntary Admission: Yes 96 Hour Hold Ending Date: 03/30/22 96 Hour Hold Ending Time: 23:00 Attestations NPU Medical Necessity Statement*: Inpatient hospitalization is medically necessary and the clinically appropriate intervention at this time. We will initiate medications and make changes as indicated. Coding Level of Care Code Acute Transcribing Operators Supervisor for Luis [employer]og Fwd Diagnoses Sexually transmitted disease (STD) A64 Unprotected sexual intercourse Z72.51 Cannabis use disorder, severe, dependence F12.20 Alcohol use disorder, moderate, dependence F10.20 Major depressive disorder F32.9 PTSD (post-traumatic stress disorder) F43.10 Cluster B personality disorder in adult F60.9 Suicidal ideation R45.851
[2022-04-09 19:37] VITALS: BP 123/77; PULSE 75; RESP 16; TEMP 37.1; O2SAT 99
[2022-04-09] MEDS: lithium carbonate 300 mg Capsule 600 MG PO (20:10)
[2022-04-09] MEDS: prazosin 1 mg Capsule 2 MG PO (20:10)
[2022-04-09] MEDS: quetiapine 100 mg Tablet PO (20:10)
--- NOTE | 2022-04-09 23:30 | PC.NURSE ---
PT REPORTS THAT SHE IS FEELING BETTER SINCE ADMISSION. THIS EVENING DENIES ANY SI OR HI. ALSO DENIES ANY AVH THIS EVENING. STATES SHE FEELS IMPROVEMENT WITH THE MEDICATIONS. AFFECT IS NOTED TO BE BRIGHTER, INTERACTION IS APPROPRIATE.
[2022-04-10] MEDS: acetaminophen 325 mg Tablet 650 MG PO ×2 (03:50→12:31)
[2022-04-10 06:00] VITALS: BP 105/55; PULSE 71; RESP 18; TEMP 36.9; O2SAT 98
[2022-04-10] MEDS: divalproex ER 500 mg Tablet (24H) PO ×2 (09:02→20:10)
[2022-04-10] MEDS: lithium carbonate 300 mg Capsule PO (09:02)
[2022-04-10] MEDS: multivitamin therapeutic Tablet 1 TAB PO (09:02)
[2022-04-10] MEDS: folic acid 1 mg Tablet PO (09:02)
[2022-04-10] MEDS: thiamine 100 mg Tablet PO (09:02)
[2022-04-10] MEDS: divalproex ER 250 mg Tablet (24H) PO ×2 (09:02→20:10)
[2022-04-10] MEDS: fluconazole 100 mg Tablet 150 MG PO (09:03)
[2022-04-10] MEDS: pantoprazole DR 40 mg Tablet PO (10:25)
[2022-04-10] MEDS: nicotine 2 mg Gum BUCCAL ×2 (12:32→16:49)
--- NOTE | 2022-04-10 12:49 | P.NPUPN_ITS ---
Subjective NPU Subjective: She says that she continues to do fairly well. She denies any suicidal ideation. She says the nightmares continue to be good. Her depression is generally controlled. She is bored being here. Her upper quadrant pain is gradually improving with Protonix. She says that her vaginal burning was better but seems to be worse again this morning. Mental Status Exam MSE Comments: This is an overweight obese white female in hospital scrubs with colorful hair and adequate grooming and eye contact. No abnormal movements. Psychomotor activity is normal cooperative with exam in no acute distress. Sp eech was more normal rate and volume. Mood described as mildly depressed, affect congruent. Thought process, organized. Thought content: She denies suicidal ideation recently and no homicidal ideation, no delusions reported or noted, and denies any auditory or visual hallucinations. Attention and concentration are intact and memory is reliable though none were formally tested. She is alert and oriented three times. Insight and judgment are limited. Impulse control is impaired.? Intellectual abilities are limited. Cognition: Patient Appearance: Appropriate Level of Consciousness: Awake and Alert Patient Cognition Impaired: No Ability to Follow Directions: Good Patient Orientation (long list): Person, Place, Time, Name, Age, Birthday, Day of Week and Month Comprehension Ability: Mild Impairment Hallucination Type: None Delusion Description: Not Present Thought Process: Appropriate Affect: Affect Description: Calm Behavior: Patient Behavior: Cooperative and Withdrawn Speech Pattern: Clear Vitals/I&O/Wt Last Vital Signs Temp 98.5 F 04/10/22 06:00 Pulse 71 04/10/22 06:00 Resp 18 04/10/22 06:00 BP 105/55 04/10/22 06:00 Pulse Ox 98 04/10/22 06:00 Data NPU : 03/24/22 22:50 03/24/22 22:50 A&P Assessment and plan (1) Sexually transmitted disease (STD): Status: Acute (2) Unprotected sexual intercourse: Status: Acute (3) Cannabis use disorder, severe, dependence: Status: Acute (4) Alcohol use disorder, moderate, dependence: Status: Acute (5) Major depressive disorder: Status: Acute (6) PTSD (post-traumatic stress disorder): Status: Acute (7) Cluster B personality disorder in adult: Status: Acute (8) Suicidal ideation: Status: Acute Plan This is a 22-year-old, white female, with post-traumatic stress disorder, depression, anxiety, rule out borderline personality disorder, who presents reporting that she has been off her medication since she left the hospital a week or two ago, and she is hoping to get them restarted and assistance in actually getting them so they can be effective once she leaves. RECOMMENDATION AND PLAN: 1. Continue current medication.? [place] 300 mg every morning and 600 mg at bedtime, Seroquel 100 mg and trazodone 50 mg at bedtime Depakote 750 mg twice daily and add prazosin 2 mg at bedtime. 2. Encourage individual, group, and milieu therapy. 3. Continue q-15 minute checks for safety. 4. Encourage sober living treatment after discharge, at the highest level of care, to which she is willing to commit. 5. ?We obtained studies and results for lab work.? Hospitalist consult was requested for positive results, treatment and counseling.? Thank you for hospitalist consult and will follow recommendations for treatment as indicated. 6. ? Significant concerns exist about her sexual promiscuity and her never having succeeded outside of the residential setting and her risk for danger if d ischarged to a nursing home or any other unsupervised setting.? Patient was willing to sign into the hospital understanding the dangers she presents herself unsupervised/unstructured. 7. ? If information is not available we will personally call the hospital morning and talk to [facility] administration about their inappropriate use of HIPAA causing undue limitations on care. Involuntary Hold Information 96 Hour Hold: 96 Hour Involuntary Admission: Yes 96 Hour Hold Ending Date: 03/30/22 96 Hour Hold Ending Time: 23:00 Attestations NPU Medical Necessity Statement*: Inpatient hospitalization is medically necessary and the clinically appropriate intervention at this time. We will initiate medications and make changes as indicated. Coding Level of Care Code Acute Instructional Systems Designer for [facility] Fwd Diagnoses Sexually transmitted disease (STD) A64 Unprotected sexual intercourse Z72.51 Cannabis use disorder, severe, dependence F12.20 Alcohol use disorder, moderate, dependence F10.20 Major depressive disorder F32.9 PTSD (post-traumatic stress disorder) F43.10 Cluster B personality disorder in adult F60.9 Suicidal ideation R45.851
[2022-04-10 14:00] VITALS: BP 114/76; PULSE 77; RESP 16; TEMP 37; O2SAT 98
[2022-04-10 19:46] VITALS: BP 110/72; PULSE 76; RESP 16; TEMP 37.1; O2SAT 98
[2022-04-10] MEDS: lithium carbonate 300 mg Capsule 600 MG PO (20:10)
[2022-04-10] MEDS: prazosin 1 mg Capsule 2 MG PO (20:10)
[2022-04-10] MEDS: quetiapine 100 mg Tablet PO (20:10)
[2022-04-10] MEDS: nystatin cream 30 gm 1 APPLIC TOPICAL (20:42)
--- NOTE | 2022-04-10 23:00 | PC.NURSE ---
PT UP AT START OF SHIFT. CALM, COOPERATIVE, OX4, AND INTERACTING WELL WITH OTHERS. WHEN ASKED PT STATES THAT SHE IS EXPERIENCING BOTH [facility] AND HAS SOME PASSIVE SI THIS EVENING. DOES CONTRACT FOR SAFETY. NO OUTWARD SIGNS OF RESPONSES TO INTERNAL STIMULI NOTED AT THIS TIME. PT WAS LATER TEARFUL AND ASKED TO SPEAK WITH STAFF ONE ON ONE. PT REPORTS THAT SHE HAD A BAD PHONE CALL WITH HER DAD TODAY AND THAT SINCE THAT LITTLE THINGS HAVE BEEN AGITATING HER EASILY. SPOKE OF FEELINGS OF PEOPLE NOT LIKING HER OR THINKING THAT SHE DOES NOT CARE. STAFF SPOKE WITH PT ABOUT COPING AND HEALTHY BOUNDARIES WITH OTHERS. PT DID CALM AND FELT BETTER. PT NOW RESTING IN BED WITH NO FURTHER C/O VOICED.
[2022-04-11 06:00] VITALS: BP 114/75; PULSE 71; RESP 16; TEMP 36.7; O2SAT 97
[2022-04-11] MEDS: lithium carbonate 300 mg Capsule PO (06:27)
[2022-04-11] MEDS: pantoprazole DR 40 mg Tablet PO ×2 (06:58→09:07)
--- NOTE | 2022-04-11 06:58 | W.PM.NPUPNS ---
Subjective NPU Subjective: She says that she continues to do fairly well. She denies any suicidal ideation. She says the nightmares continue to be good. Her depression is generally controlled. She is bored being here. Her upper quadrant pain is gradually improving with Protonix. She says that her vaginal burning was better but seems to be worse again. Mental Status Exam MSE Comments: This is an overweight obese white female in hospital scrubs with colorful hair and adequate grooming and eye contact. No abnormal movements. Psychomotor activity is normal cooperative with exam in no acute distress. Speech was more normal rate and volume. Mood described as mildly depressed, affect congruent. Thought process, organized. Thought content: She denies suicidal ideation recently and no homicidal ideation, no delusions reported or noted, and denies any auditory or visual hallucinations. Attention and concentration are intact and memory is reliable though none were formally tested. She is alert and oriented three times. Insight and judgment are limited. Impulse control is impaired.? Intellectual abilities are limited. Cognition: Patient Appearance: Appropriate Level of Consciousness: Awake and Alert Patient Cognition Impaired: No Ability to Follow Directions: Good Patient Orientation (long list): Person, Place, Time, Name, Age, Birthday, Day of Week and Month Comprehension Ability: Mild Impairment Hallucination Type: Auditory and Visual Delusion Description: Not Present Thought Process: Appropriate Affect: Affect Description: Calm Behavior: Patient Behavior: Appropriate Speech Pattern: Appropriate and Clear Vitals/I&O/Wt Last Vital Signs Temp 98.1 F 04/11/22 06:00 Pulse 71 04/11/22 06:00 Resp 16 04/11/22 06:00 BP 114/75 04/11/22 06:00 Pulse Ox 97 04/11/22 06:00 Weight last 48 hrs Weight 99.246 kg Weight 99.246 kg Data NPU : 03/24/22 22:50 03/24/22 22:50 A&P Assessment and plan (1) Sexually transmitted disease (STD): Status: Acute (2) Unprotected sexual intercourse: Status: Acute (3) Cannabis use disorder, severe, dependence: Status: Acute (4) Alcohol use disorder, moderate, dependence: Status: Acute (5) Major depressive disorder: Status: Acute (6) PTSD (post-traumatic stress disorder): Status: Acute (7) Cluster B personality disorder in adult: Status: Acute (8) Suicidal ideation: Status: Acute Plan This is a 22-year-old, white female, with post-traumatic stress disorder, depression, anxiety, rule out borderline personality disorder, who presents reporting that she has been off her medication since she left the hospital a week or two ago, and she is hoping to get them restarted and assistance in actually getting them so they can be effective once she leaves. RECOMMENDATION AND PLAN: 1. Continue current medication.? [place] 300 mg every morning and 600 mg at bedtime, Seroquel 100 mg and trazodone 50 mg at bedtime Depakote 750 mg twice daily and add prazosin 2 mg at bedtime. Continue fluconazole an extra 2 days at 200 mg daily 2. Encourage individual, group, and milieu therapy. 3. Continue q-15 minute checks for safety. 4. Encourage sober living treatment after discharge, at the highest level of care, to which she is willing to commit. 5. ?We obtained studies and results for lab work.? Hospitalist consult was requested for positive results, treatment and counseling.? Thank you for hospitalist consult and will follow recommendations for treatment as indicated. 6. ? Significant concerns exist about her sexual promiscuity and her never having succeeded outside of the residential setting and her risk for danger if discharged to a nursing home or any other unsupervised setting.? Patient was willing to sign into the hospital understanding the dangers she presents herself unsupervised/unstructured. 7. ? If information is not available we will personally call the hospital morning and talk to [facility] administration about their inappropriate use of HIPAA causing undue limitations on care. Involuntary Hold Information 96 Hour Hold: 96 Hour Involuntary Admission: Yes 96 Hour Hold Ending Date: 03/30/22 96 Hour Hold Ending Time: 23:00 Attestations U Medical Necessity Statement*: Inpatient hospitalization is medically necessary and the clinically appropriate intervention at this time. We will initiate medications and make changes as indicated. Coding Level of Care Code Acute Assistant Tennis Coach for [facility] Fwd Diagnoses Sexually transmitted disease (STD) A64 Unprotected sexual intercourse Z72.51 Cannabis use disorder, severe, dependence F12.20 Alcohol use disorder, moderate, dependence F10.20 Major depressive disorder F32.9 PTSD (post-traumatic stress disorder) F43.10 Cluster B personality disorder in adult F60.9 Suicidal ideation R45.851
[2022-04-11] MEDS: divalproex ER 250 mg Tablet (24H) PO ×2 (09:07→20:31)
[2022-04-11] MEDS: fluconazole 100 mg Tablet 200 MG PO (09:07)
[2022-04-11] MEDS: folic acid 1 mg Tablet PO (09:08)
[2022-04-11] MEDS: multivitamin therapeutic Tablet 1 TAB PO (09:08)
[2022-04-11] MEDS: thiamine 100 mg Tablet PO (09:08)
[2022-04-11] MEDS: divalproex ER 500 mg Tablet (24H) PO ×2 (09:08→20:32)
[2022-04-11 14:00] VITALS: BP 122/80; PULSE 81; RESP 17; TEMP 37; O2SAT 97
[2022-04-11 20:17] VITALS: BP 114/76; PULSE 77; RESP 18; TEMP 37.2; O2SAT 97
[2022-04-11] MEDS: quetiapine 100 mg Tablet PO (20:31)
[2022-04-11] MEDS: prazosin 1 mg Capsule 2 MG PO (20:31)
[2022-04-11] MEDS: lithium carbonate 300 mg Capsule 600 MG PO (20:31)
[2022-04-12 06:00] VITALS: BP 101/69; PULSE 73; RESP 16; TEMP 36.8; O2SAT 96
[2022-04-12] MEDS: lithium carbonate 300 mg Capsule PO (06:07)
[2022-04-12] MEDS: multivitamin therapeutic Tablet 1 TAB PO (08:41)
[2022-04-12] MEDS: fluconazole 100 mg Tablet 200 MG PO (08:41)
[2022-04-12] MEDS: divalproex ER 250 mg Tablet (24H) PO ×2 (08:41→20:16)
[2022-04-12] MEDS: thiamine 100 mg Tablet PO (08:41)
[2022-04-12] MEDS: divalproex ER 500 mg Tablet (24H) PO ×2 (08:41→20:16)
[2022-04-12] MEDS: folic acid 1 mg Tablet PO (08:41)
--- NOTE | 2022-04-12 11:40 | W.PM.NPUPNS ---
Subjective NPU Subjective: She Latoya says that she continues to do fairly well. She denies any suicidal ideation. She says the nightmares continue to be good. Her depression is generally controlled. She is bored being here. Her upper quadrant pain is gradually improving with Protonix. Was skipping breakfast and only eating lunch. She now has been eating breakfast and would like the Protonix changed to 6 AM. Mental Status Exam MSE Comments: This is an overweight obese white female in hospital scrubs with colorful hair and adequate grooming and eye contact. No abnormal movements. Psychomotor activity is normal cooperative with exam in no acute distress. Speech was more normal rate and volume. Mood described as mildly depressed, affect congruent. Thought process, organized. Thought content: She denies suicidal ideation recently and no homicidal ideation, no delusions reported or noted, and denies any auditory or visual hallucinations. Attention and concentration are intact and memory is reliable though none were formally tested. She is alert and oriented three times. Insight and judgment are limited. Impulse control is impaired.? Intellectual abilities are limited. Cognition: Patient Appearance: Disheveled/Poor Hygiene Level of Consciousness: Awake and Alert Patient Cognition Impaired: No Ability to Follow Directions: Good Patient Orientation (long list): Person, Place, Time, Name, Age, Birthday, Day of Week and Month Comprehension Ability: Mild Impairment Hallucination Type: None Delusion Description: Not Present Thought Process: Logical Affect: Affect Description: Calm Behavior: Patient Behavior: Cooperative Speech Pattern: Appropriate and Clear Vitals/I&O/Wt Last Vital Signs Temp 98.3 F 04/12/22 06:00 Pulse 73 04/12/22 06:00 Resp 16 04/12/22 06:00 BP 101/69 04/12/22 06:00 Pulse Ox 96 04/12/22 06:00 Weight last 48 hrs Weight 99.246 kg Weight 99.246 kg Data NPU : 03/24/22 22:50 03/24/22 22:50 A&P Assessment and plan (1) Sexually transmitted disease (STD): Status: Acute (2) Unprotected sexual intercourse: Status: Acute (3) Cannabis use disorder, severe, dependence: Status: Acute (4) Alcohol use disorder, moderate, dependence: Status: Acute (5) Major depressive disorder: Status: Acute (6) PTSD (post-traumatic stress disorder): Status: Acute (7) Cluster B personality disorder in adult: Status: Acute (8) Suicidal ideation: Status: Acute Plan This is a 22-year-old, white female, with post-traumatic stress disorder, depression, anxiety, rule out borderline personality disorder, who presents reporting that she has been off her medication since she left the hospital a week or two ago, and she is hoping to get them restarted and assistance in actually getting them so they can be effective once she leaves. RECOMMENDATION AND PLAN: 1. Continue current medication.? [place] 300 mg every morning and 600 mg at bedtime, Seroquel 100 mg and trazodone 50 mg at bedtime Depakote 750 mg twice daily and add prazosin 2 mg at bedtime. 2. Encourage individual, group, and milieu therapy. 3. Continue q-15 minute checks for safety. 4. Encourage sober living treatment after discharge, at the highest level of care, to which she is willing to commit. 5. ?We obtained studies and results for lab work.? Hospitalist consult was requested for positive results, treatment and counseling.? Thank you for hospitalist consult and will follow recommendations for treatment as indicated. 6. ? Significant concerns exist about her sexual promiscuity and her never having succeeded outside of the residential setting and her risk for danger if discharged to a correction or any other unsupervised setting.? Patient was willing to sign into the hospital understanding the dangers she presents herself unsupervised/unstructured. 7. ? If information is not available we will personally call the hospital morning and talk to [facility] administration about their inappropriate use of HIPAA causing undue limitations on care. Involuntary Hold Information 96 Hour Hold: 96 Hour Involuntary Admission: Yes 96 Hour Hold Ending Date: 03/30/22 96 Hour Hold Ending Time: 23:00 Attestations NPU Medical Necessity Statement*: Inpatient hospitalization is medically necessary and the clinically appropriate intervention at this time. We will initiate medications and make changes as indicated. Coding Level of Care Code Acute Life Insurance Specialist for [facility] Diagnoses Sexually transmitted disease (STD) A64 Unprotected sexual intercourse Z72.51 Cannabis use disorder, severe, dependence F12.20 Alcohol use disorder, moderate, dependence F10.20 Major depressive disorder F32.9 PTSD (post-traumatic stress disorder) F43.10 Cluster B personality disorder in adult F60.9 Suicidal ideation R45.851
[2022-04-12 14:00] VITALS: BP 112/80; PULSE 69; RESP 17; TEMP 36.5; O2SAT 99
[2022-04-12 20:04] VITALS: BP 106/67; PULSE 81; RESP 16; TEMP 36.8; O2SAT 94
[2022-04-12] MEDS: prazosin 1 mg Capsule 2 MG PO (20:15)
[2022-04-12] MEDS: lithium carbonate 300 mg Capsule 600 MG PO (20:16)
[2022-04-12] MEDS: quetiapine 100 mg Tablet PO (20:16)
[2022-04-12] MEDS: nystatin cream 30 gm 1 APPLIC TOPICAL (20:31)
[2022-04-13 06:00] VITALS: BP 100/65; PULSE 82; RESP 20; TEMP 36.8; O2SAT 97
[2022-04-13] MEDS: lithium carbonate 300 mg Capsule PO (06:15)
[2022-04-13] MEDS: pantoprazole DR 40 mg Tablet PO (06:15)
[2022-04-13] MEDS: thiamine 100 mg Tablet PO (08:20)
[2022-04-13] MEDS: multivitamin therapeutic Tablet 1 TAB PO (08:20)
[2022-04-13] MEDS: folic acid 1 mg Tablet PO (08:21)
[2022-04-13] MEDS: divalproex ER 250 mg Tablet (24H) PO ×2 (08:21→20:51)
[2022-04-13] MEDS: divalproex ER 500 mg Tablet (24H) PO ×2 (08:21→20:50)
--- NOTE | 2022-04-13 13:51 | W.PM.NPUPNS ---
Subjective NPU Subjective: She says that she continues to do fairly well. She denies any suicidal ideation. She says the nightmares continue to be well controlled. Her depression is generally controlled. She is bored being here. Her upper quadrant pain is gradually improving with Protonix. Mental Status Exam MSE Comments: This is an overweight obese white female in hospital scrubs with adequate grooming and eye contact. No abnormal movements. Psychomotor activity is normal cooperative with exam in no acute distress. Speech was more normal rate and volume. Mood described as mildly depressed, affect congruent. Thought process, organized. Thought content: She denies suicidal ideation recently and no homicidal ideation, no delusions reported or noted, and denies any auditory or visual hallucinations. Attention and concentration are intact and memory is reliable though none were formally tested. She is alert and oriented three times. Insight and judgment are limited. Impulse control is impaired.? Intellectual abilities are limited. Cognition: Patient Appearance: Appropriate and Disheveled/Poor Hygiene Level of Consciousness: Awake and Alert Patient Cognition Impaired: No Ability to Follow Directions: Good Patient Orientation (long list): Person, Place, Name, Birthday, Day of Month, Day of Week, Month and Year Comprehension Ability: Mild Impairment Hallucination Type: Auditory and Visual Delusion Description: Not Present Thought Process: Appropriate and Disorganized Affect: Affect Description: Appropriate Behavior: Patient Behavior: Appropriate and Cooperative Speech Pattern: Appropriate and Clear Vitals/I&O/Wt Last Vital Signs Temp 98.3 F 04/13/22 06:00 Pulse 82 04/13/22 06:00 Resp 20 H 04/13/22 06:00 BP 100/65 04/13/22 06:00 Pulse Ox 97 04/13/22 06:00 Data NPU : 03/24/22 22:50 03/24/22 22:50 A&P Assessment and plan (1) Sexually transmitted disease (STD): Status: Acute (2) Unprotected sexual intercourse: Status: Acute (3) Cannabis use disorder, severe, dependence: Status: Acute (4) Alcohol use disorder, moderate, dependence: Status: Acute (5) Major depressive disorder: Status: Acute (6) PTSD (post-traumatic stress disorder): Status: Acute (7) Cluster B personality disorder in adult: Status: Acute (8) Suicidal ideation: Status: Acute Plan This is a 22-year-old, white female, with post-traumatic stress disorder, depression, anxiety, rule out borderline personality disorder, who presents reporting that she has been off her medication since she left the hospital a week or two ago, and she is hoping to get them restarted and assistance in actually getting them so they can be effective once she leaves. RECOMMENDATION AND PLAN: 1. Continue current medication.? [place] 300 mg every morning and 600 mg at bedtime, Seroquel 100 mg and trazodone 50 mg at bedtime Depakote 750 mg twice daily and add prazosin 2 mg at bedtime. 2. Encourage individual, group, and milieu therapy. 3. Continue q-15 minute checks for safety. 4. Encourage sober living treatment after discharge, at the highest level of care, to which she is willing to commit. 5. ?We obtained studies and results for lab work.? Hospitalist consult was requested for positive results, treatment and counseling.? Thank you for hospitalist consult and will follow recommendations for treatment as indicated. 6. ? Significant concerns exist about her sexual promiscuity and her never having succeeded outside of the residential setting and her risk for danger if discharged to a prison or any other unsupervised setting.? Patient was willing to sign into the hospital understanding the dangers she presents herself unsupervised/unstructured. 7. ? If information is not available we will personally call the hospital morning and talk to [facility] administration about their inappropriate use of HIPAA causing undue limitations on care. Involuntary Hold Information 96 Hour Hold: 96 Hour Involuntary Admission: Yes 96 Hour Hold Ending Date: 03/30/22 96 Hour Hold Ending Time: 23:00 Attestations NPU Medical Necessity Statement*: Inpatient hospitalization is medically necessary and the clinically appropriate intervention at this time. We will initiate medications and make changes as indicated. Coding Level of Care Code Acute Machine [employer]k Screen Printer for [facility] Diagnoses Sexually transmitted disease (STD) A64 Unprotected sexual intercourse Z72.51 Cannabis use disorder, severe, dependence F12.20 Alcohol use disorder, moderate, dependence F10.20 Major depressive disorder F32.9 PTSD (post-traumatic stress disorder) F43.10 Cluster B personality disorder in adult F60.9 Suicidal ideation R45.851
[2022-04-13 14:00] VITALS: BP 122/80; PULSE 76; RESP 18; TEMP 36.7; O2SAT 97
[2022-04-13] MEDS: nicotine 2 mg Gum BUCCAL (16:30)
--- NOTE | 2022-04-13 17:35 | PC.NURSE ---
at approximately 1715 patient observed on camera lifting her shirt in front of a male patient in the day room. academic affairs director observed incident on camera with staff. This RN discussed with patient inappropriate behavior and discussed with patien that future behavior would result in having a person sit with her to monitor her behavior. Patient verbalized understanding.
[2022-04-13 20:31] VITALS: BP 113/70; PULSE 111; RESP 17; TEMP 37.4; O2SAT 94
[2022-04-13] MEDS: prazosin 1 mg Capsule 2 MG PO (20:50)
[2022-04-13] MEDS: quetiapine 100 mg Tablet PO (20:51)
[2022-04-13] MEDS: lithium carbonate 300 mg Capsule 600 MG PO (20:51)
[2022-04-14 06:00] VITALS: BP 100/66; PULSE 55; RESP 17; TEMP 36.7; O2SAT 99
[2022-04-14] MEDS: pantoprazole DR 40 mg Tablet PO (06:09)
[2022-04-14] MEDS: lithium carbonate 300 mg Capsule PO (06:09)
[2022-04-14] MEDS: multivitamin therapeutic Tablet 1 TAB PO (08:02)
[2022-04-14] MEDS: thiamine 100 mg Tablet PO (08:02)
[2022-04-14] MEDS: divalproex ER 250 mg Tablet (24H) PO ×2 (08:02→20:22)
[2022-04-14] MEDS: divalproex ER 500 mg Tablet (24H) PO ×2 (08:02→20:22)
[2022-04-14] MEDS: folic acid 1 mg Tablet PO (08:02)
[2022-04-14 14:00] VITALS: BP 124/87; PULSE 83; RESP 17; TEMP 36.7; O2SAT 97
--- NOTE | 2022-04-14 15:49 | W.PM.NPUPNS ---
Subjective NPU Subjective: Patient is in today reporting that she is getting bored about being here but knows that she does not have any really good options. She is aware that we have identified a limited only program that might be an option and she is open to what ever opportunities exist. We talked about the importance of her working on her choices of behaviors that she wants people to get her chance she is going to have to demonstrate that she is going to work hard at not doing the things that raise concerns. Mental Status Exam MSE Comments: This is an obese white female in hospital scrubs with colorful hair and adequate grooming and eye contact. No abnormal movements except for mild psychomotor retardation. Cooperative with exam in no acute distress. Speech was more normal rate and volume. Mood described as fine, affect congruent. Thought process, organized. Thought content: patient denies any suicidal or homicidal ideation, no delusions reported or noted, and denies any auditory or visual hallucinations. Attention and concentration are intact and memory is reliable though none were formally tested. She is alert and oriented three times. Insight and judgment are limited. Impulse control is impaired.? Intellectual abilities are limited. Vitals/I&O/Wt Last Vital Signs Temp 98.1 F 04/14/22 14:00 Pulse 83 04/14/22 14:00 Resp 17 04/14/22 14:00 BP 124/87 04/14/22 14:00 Pulse Ox 97 04/14/22 14:00 Data NPU : 03/24/22 22:50 03/24/22 22:50 A&P Assessment and plan (1) Sexually transmitted disease (STD): Status: Acute (2) Unprotected sexual intercourse: Status: Acute (3) Cannabis use disorder, severe, dependence: Status: Acute (4) Alcohol use disorder, moderate, dependence: Status: Acute (5) Major depressive disorder: Status: Acute (6) PTSD (post-traumatic stress disorder): Status: Acute (7) Cluster B personality disorder in adult: Status: Acute (8) Suicidal ideation: Status: Acute Plan This is a 22-year-old, white female, with post-traumatic stress disorder, depression, anxiety, rule out borderline personality disorder, who presents reporting that she has been off her medication since she left the hospital a week or two ago, and she is hoping to get them restarted and assistance in actually getting them so they can be effective once she leaves. RECOMMENDATION AND PLAN: 1. Continue current medication.? [place] 300 mg every morning and 600 mg at bedtime, Seroquel 100 mg and trazodone 50 mg at bedtime Depakote 750 mg twice daily and add prazosin 2 mg at bedtime.? 2. Encourage individual, group, and milieu therapy. 3. Continue q-15 minute checks for safety. 4. Encourage sober living treatment after discharge, at the highest level of care, to which she is willing to commit. 5. ?We obtained studies and results for lab work.? Hospitalist consult was requested for positive results, treatment and counseling.? Thank you for hospitalist consult and will follow recommendations for treatment as indicated. 6. ? Significant concerns exist about her sexual promiscuity and her never having succeeded outside of the residential setting and her risk for danger if discharged to a skilled nursing or any other unsupervised setting.? Patient was willing to sign into the hospital understanding the dangers she presents herself unsupervised/unstructured. Involuntary Hold Information 96 Hour Hold: 96 Hour Involuntary Admission: Yes 96 Hour Hold Ending Date: 03/30/22 96 Hour Hold Ending Time: 23:00 Attestations NPU Medical Necessity Statement*: Inpatient hospitalization is medically necessary and the clinically appropriate intervention at this time.? We will initiate medications and make changes as indicated. Awaiting safe placement for discharge. Coding Level of Care Code Acute Piano Teacher for [facility] Diagnoses Sexually transmitted disease (STD) A64 Unprotected sexual intercourse Z72.51 Cannabis use disorder, severe, dependence F12.20 Alcohol use disorder, moderate, dependence F10.20 Major depressive disorder F32.9 PTSD (post-traumatic stress disorder) F43.10 Cluster B personality disorder in adult F60.9 Suicidal ideation R45.851
[2022-04-14] MEDS: lithium carbonate 300 mg Capsule 600 MG PO (20:22)
[2022-04-14] MEDS: prazosin 1 mg Capsule 2 MG PO (20:23)
[2022-04-14] MEDS: quetiapine 100 mg Tablet PO (20:23)
[2022-04-14 21:15] VITALS: BP 113/77; PULSE 75; RESP 16; TEMP 36.8; O2SAT 97
[2022-04-15 06:00] VITALS: BP 111/75; PULSE 70; RESP 18; TEMP 37; O2SAT 98
[2022-04-15] MEDS: pantoprazole DR 40 mg Tablet PO (06:02)
[2022-04-15] MEDS: lithium carbonate 300 mg Capsule PO (06:02)
[2022-04-15] MEDS: divalproex ER 250 mg Tablet (24H) PO ×2 (08:24→20:30)
[2022-04-15] MEDS: divalproex ER 500 mg Tablet (24H) PO ×2 (08:24→20:30)
[2022-04-15] MEDS: multivitamin therapeutic Tablet 1 TAB PO (08:24)
[2022-04-15] MEDS: folic acid 1 mg Tablet PO (08:24)
[2022-04-15] MEDS: thiamine 100 mg Tablet PO (08:24)
[2022-04-15 14:00] VITALS: BP 113/75; PULSE 110; RESP 17; TEMP 36.7; O2SAT 97
--- NOTE | 2022-04-15 16:01 | P.NPUPN_ITS ---
Subjective NPU Subjective: Patient presents today a little saddened by the news that another program had rejected her. However she continued to report that she would work with us to find some safe place for her to go. She did call family including maybe her aunt yesterday but she was told that she had really concerned about safety and they would not be able to allow her to stay. We continue to discuss her behavioral patterns and managing them appropriately. Mental Status Exam MSE Comments: This is an obese white female in hospital scrubs with colorful hair and adequate grooming and eye contact. No abnormal movements except for mild psychomotor retardation.? Cooperative with exam in no acute distress. Speech was more normal rate and volume. Mood described as okay but worried, affect congruent.? Thought process, organized. Thought content: patient denies any suicidal or homicidal ideation, no delusions reported or noted, and denies any auditory or visual hallucinations. Attention and concentration are intact a nd memory is reliable though none were formally tested. She is alert and oriented three times. Insight and judgment are limited. Impulse control is impaired.? Intellectual abilities are limited. Vitals/I&O/Wt Last Vital Signs Temp 98.1 F 04/15/22 14:00 Pulse 110 H 04/15/22 14:00 Resp 17 04/15/22 14:00 BP 113/75 04/15/22 14:00 Pulse Ox 97 04/15/22 14:00 Data NPU : 03/24/22 22:50 03/24/22 22:50 A&P Assessment and plan (1) Sexually transmitted disease (STD): Status: Acute (2) Unprotected sexual intercourse: Status: Acute (3) Cannabis use disorder, severe, dependence: Status: Acute (4) Alcohol use disorder, moderate, dependence: Status: Acute (5) Major depressive disorder: Status: Acute (6) PTSD (post-traumatic stress disorder): Status: Acute (7) Cluster B personality disorder in adult: Status: Acute (8) Suicidal ideation: Status: Acute (9) Vaginal itching: Status: Acute Plan This is a 22-year-old, white female, with post-traumatic stress disorder, depression, anxiety, rule out borderline personality disorder, who presents reporting that she has been off her medication since she left the hospital a we ek or two ago, and she is hoping to get them restarted and assistance in actually getting them so they can be effective once she leaves. RECOMMENDATION AND PLAN: 1. Continue current medication.? [place] 300 mg every morning and 600 mg at bedtime, Seroquel 100 mg and trazodone 50 mg at bedtime Depakote 750 mg twice daily and add prazosin 2 mg at bedtime.? 2. Encourage individual, group, and milieu therapy. 3. Continue q-15 minute checks for safety. 4. Encourage sober living treatment after discharge, at the highest level of care, to which she is willing to commit. 5. ?We obtained studies and results for lab work.? Hospitalist consult was requested for positive results, treatment and counseling.? Thank you for hospitalist consult and will follow recommendations for treatment as indicated. 6. ? Significant concerns exist about her sexual promiscuity and her never urbina ving succeeded outside of the residential setting and her risk for danger if discharged to a assisted or any other unsupervised setting.? Patient was willing to sign into the hospital understanding the dangers she presents herself unsupervised/unstructured. Involuntary Hold Information 96 Hour Hold: 96 Hour Involuntary Admission: Yes 96 Hour Hold Ending Date: 03/30/22 96 Hour Hold Ending Time: 23:00 Attestations NPU Medical Necessity Statement*: Inpatient hospitalization is medically necessary and the clinically appropriate intervention at this time.? We will initiate medications and make changes as indicated.? Awaiting safe placement for discharge. Coding Level of Care Code Acute Insecticide Maker for [facility] Jennifer Diagnoses Sexually transmitted disease (STD) A64 Unprotected sexual intercourse Z72.51 Cannabis use disorder, severe, dependence F12.20 Alcohol use disorder, moderate, dependence F10.20 Major depressive disorder F32.9 PTSD (post-traumatic stress disorder) F43.10 Cluster B personality disorder in adult F60.9 Suicidal ideation R45.851 Vaginal itching N89.8
[2022-04-15] MEDS: prazosin 1 mg Capsule 2 MG PO (20:30)
[2022-04-15] MEDS: lithium carbonate 300 mg Capsule 600 MG PO (20:30)
[2022-04-15] MEDS: quetiapine 100 mg Tablet PO (20:30)
[2022-04-15 20:42] VITALS: BP 106/72; PULSE 79; RESP 17; TEMP 36.8; O2SAT 97
[2022-04-16 06:00] VITALS: BP 101/65; PULSE 77; RESP 16; TEMP 36.7; O2SAT 94
[2022-04-16] MEDS: pantoprazole DR 40 mg Tablet PO (06:02)
[2022-04-16] MEDS: lithium carbonate 300 mg Capsule PO (06:02)
[2022-04-16] MEDS: thiamine 100 mg Tablet PO (09:15)
[2022-04-16] MEDS: divalproex ER 500 mg Tablet (24H) PO ×2 (09:15→20:47)
[2022-04-16] MEDS: multivitamin therapeutic Tablet 1 TAB PO (09:15)
[2022-04-16] MEDS: nicotine 2 mg Gum BUCCAL ×2 (09:15→19:57)
[2022-04-16] MEDS: divalproex ER 250 mg Tablet (24H) PO ×2 (09:15→20:47)
[2022-04-16] MEDS: folic acid 1 mg Tablet PO (09:15)
[2022-04-16 14:00] VITALS: BP 109/74; PULSE 86; RESP 16; TEMP 36.7; O2SAT 97
--- NOTE | 2022-04-16 17:13 | P.NPUPN_ITS ---
Subjective NPU Subjective: Patient presents today continuing to report a openness to continued collaboration with the treatment team on finding a safe possibility for discharge. You other options have been identified and referrals have been sent. She continues to report a willingness to engage in what ever programming is available and allows for a safer more structured living arrangement for her own wellbeing. Mental Status Exam MSE Comments: This is an obese white female in hospital scrubs with colorful hair and adequate grooming and eye contact. No abnormal movements except for mild psychomotor retardation.? Cooperative with exam in no acute distress. Speech was more normal rate and volume. Mood described as all right, affect congruent.? Thought process, organized. Thought content: patient denies any suicidal or homicidal ideation, no delusions reported or noted, and denies any auditory or visual hallucinations. Attention and concentration are intact and memory is reliable though none were formally tested. She is alert and oriented three times. Insight and judgment are limited. Impulse control is impaired.? Intellectual abilities are limited. Vitals/I&O/Wt Last Vital Signs Temp 98.0 F 04/16/22 14:00 Pulse 76 04/16/22 19:57 Resp 17 04/16/22 19:57 BP 101/67 04/16/22 19:57 Pulse Ox 99 04/16/22 19:57 Data NPU : 03/24/22 22:50 03/24/22 22:50 A&P Assessment and plan (1) Vaginal itching: Status: Acute (2) Sexually transmitted disease (STD): Status: Acute (3) Unprotected sexual intercourse: Status: Acute (4) Cannabis use disorder, severe, dependence: Status: Acute (5) Alcohol use disorder, moderate, dependence: Status: Acute (6) Major depressive disorder: Status: Acute (7) PTSD (post-traumatic stress disorder): Status: Acute (8) Cluster B personality disorder in adult: Status: Acute (9) Suicidal ideation: Status: Acute Plan This is a 22-year-old, white female, with post-traumatic stress disorder, depression, anxiety, rule out borderline personality disorder, who presents reporting that she has been off her medication since she left the hospital a week or two ago, and she is hoping to get them restarted and assistance in actually getting them so they can be effective once she leaves. RECOMMENDATION AND PLAN: 1. Continue current medication.? [place] 300 mg every morning and 600 mg at bedtime, Seroquel 100 mg and trazodone 50 mg at bedtime Depakote 750 mg twice daily and add prazosin 2 mg at bedtime.? 2. Encourage individual, group, and milieu therapy. 3. Continue q-15 minute checks for safety. 4. Encourage sober living treatment after discharge, at the highest level of care, to which she is willing to commit. 5. ?We obtained studies and results for lab work.? Hospitalist consult was requested for positive results, treatment and counseling.? Thank you for hospitalist consult and will follow recommendations for treatment as indicated. 6. ? Significant concerns exist about her sexual promiscuity and her never having succeeded outside of the residential setting and her risk for danger if discharged to a nursing home or any other unsupervised setting.? Patient was willing to sign into the hospital understanding the dangers she presents herself unsupervised/unstructured. Involuntary Hold Information 96 Hour Hold: 96 Hour Involuntary Admission: Yes 96 Hour Hold Ending Date: 03/30/22 96 Hour Hold Ending Time: 23:00 Attestations NPU Medical Necessity Statement*: Inpatient hospitalization is medically necessary and the clinically appropriate intervention at this time.? We will initiate medications and make changes as indicated.? Awaiting safe placement for discharge. 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
[2022-04-16 19:57] VITALS: BP 101/67; PULSE 76; RESP 17; O2SAT 99
[2022-04-16] MEDS: prazosin 1 mg Capsule 2 MG PO (20:47)
[2022-04-16] MEDS: lithium carbonate 300 mg Capsule 600 MG PO (20:47)
[2022-04-16] MEDS: quetiapine 100 mg Tablet PO (20:47)
[2022-04-17 06:00] VITALS: BP 129/85; PULSE 71; RESP 17; O2SAT 99
[2022-04-17] MEDS: pantoprazole DR 40 mg Tablet PO (06:17)
[2022-04-17] MEDS: lithium carbonate 300 mg Capsule PO (06:17)
[2022-04-17] MEDS: folic acid 1 mg Tablet PO (09:20)
[2022-04-17] MEDS: divalproex ER 500 mg Tablet (24H) PO ×2 (09:20→20:20)
[2022-04-17] MEDS: thiamine 100 mg Tablet PO (09:20)
[2022-04-17] MEDS: multivitamin therapeutic Tablet 1 TAB PO (09:20)
[2022-04-17] MEDS: divalproex ER 250 mg Tablet (24H) PO ×2 (09:20→20:20)
--- NOTE | 2022-04-17 13:24 | W.PM.NPUPNS ---
Subjective NPU Subjective: Patient presents today reporting that there have been no changes and that she is just doing her best to make sure programs looking know that she is willing to try to get better. She denies any new changes and reports he is is hopeful that something can be figured out so that she has a safe place to go. Mental Status Exam MSE Comments: This is an obese white female in hospital scrubs with colorful hair and adequate grooming and eye contact. No abnormal movements except for mild psychomotor retardation.? Cooperative with exam in no acute distress. Speech was more normal rate and volume. Mood described as okay, affect congruent.? Thought process, organized. Thought content: patient denies any suicidal or homicidal ideation, no delusions reported or noted, and denies any auditory or visual hallucinations. Attention and concentration are intact and memory is reliable though none were formally tested. She is alert and oriented three times. Insight and judgment are limited. Impulse control is impaired.? Intellectual abilities are limited. Vitals/I&O/Wt Last Vital Signs Temp 98.0 F 04/16/22 14:00 Pulse 71 04/17/22 06:00 Resp 17 04/17/22 06:00 BP 129/85 04/17/22 06:00 Pulse Ox 99 04/17/22 06:00 Data NPU : 03/24/22 22:50 03/24/22 22:50 A&P Assessment and plan (1) RUQ pain: Status: Acute (2) Vaginal itching: Status: Acute (3) Sexually transmitted disease (STD): Status: Acute (4) Unprotected sexual intercourse: Status: Acute (5) Cannabis use disorder, severe, dependence: Status: Acute (6) Alcohol use disorder, moderate, dependence: Status: Acute (7) Major depressive disorder: Status: Acute (8) PTSD (post-traumatic stress disorder): Status: Acute (9) Cluster B personality disorder in adult: Status: Acute (10) Suicidal ideation: Status: Acute Plan This is a 22-year-old, white female, with post-traumatic stress disorder, depression, anxiety, rule out borderline personality disorder, who presents reporting that she has been off her medication since she left the hospital a week or two ago, and she is hoping to get them restarted and assistance in actually getting them so they can be effective once she leaves. RECOMMENDATION AND PLAN: 1. Continue current medication.? [place] 300 mg every morning and 600 mg at bedtime, Seroquel 100 mg and trazodone 50 mg at bedtime Depakote 750 mg twice daily and add prazosin 2 mg at bedtime.? 2. Encourage individual, group, and milieu therapy. 3. Continue q-15 minute checks for safety. 4. Encourage sober living treatment after discharge, at the highest level of care, to which she is willing to commit. 5. ?We obtained studies and results for lab work.? Hospitalist consult was requested for positive results, treatment and counseling.? Thank you for hospitalist consult and will follow recommendations for treatment as indicated. 6. ? Significant concerns exist about her sexual promiscuity and her never having succeeded outside of the residential setting and her risk for danger if discharged to a fpc or any other unsupervised setting.? Patient was willing to sign into the hospital understanding the dangers she presents herself unsupervised/unstructured. Involuntary Hold Information 96 Hour Hold: 96 Hour Involuntary Admission: Yes 96 Hour Hold Ending Date: 03/30/22 96 Hour Hold Ending Time: 23:00 Attestations NPU Medical Necessity Statement*: Inpatient hospitalization is medically necessary and the clinically appropriate intervention at this time.? We will initiate medications and make changes as indicated.? Awaiting safe placement for discharge. Coding Level of Care Code Acute Child Abuse Worker for [facility] [facility] Diagnoses RUQ pain R10.11 Vaginal itching N89.8 Sexually transmitted disease (STD) A64 Unprotected sexual intercourse Z72.51 Cannabis use disorder, severe, dependence F12.20 Alcohol use disorder, moderate, dependence F10.20 Major depressive disorder F32.9 PTSD (post-traumatic stress disorder) F43.10 Cluster B personality disorder in adult F60.9 Suicidal ideation R45.851
[2022-04-17 14:00] VITALS: BP 102/70; PULSE 71; RESP 20; TEMP 36.9; O2SAT 99
[2022-04-17] MEDS: nicotine 2 mg Gum BUCCAL (17:41)
[2022-04-17 19:40] VITALS: BP 106/73; PULSE 75; RESP 18; TEMP 36.9; O2SAT 98
[2022-04-17] MEDS: lithium carbonate 300 mg Capsule 600 MG PO (20:20)
[2022-04-17] MEDS: quetiapine 100 mg Tablet PO (20:20)
[2022-04-17] MEDS: prazosin 1 mg Capsule 2 MG PO (20:20)
[2022-04-18] MEDS: lithium carbonate 300 mg Capsule PO (05:59)
[2022-04-18] MEDS: pantoprazole DR 40 mg Tablet PO (05:59)
[2022-04-18 06:00] VITALS: BP 91/53; PULSE 66; RESP 18; TEMP 36.5; O2SAT 98
[2022-04-18] MEDS: divalproex ER 250 mg Tablet (24H) PO ×2 (09:00→20:20)
[2022-04-18] MEDS: folic acid 1 mg Tablet PO (09:00)
[2022-04-18] MEDS: nicotine 2 mg Gum BUCCAL ×2 (09:00→12:42)
[2022-04-18] MEDS: thiamine 100 mg Tablet PO (09:00)
[2022-04-18] MEDS: multivitamin therapeutic Tablet 1 TAB PO (09:00)
[2022-04-18] MEDS: divalproex ER 500 mg Tablet (24H) PO ×2 (09:00→20:20)
--- NOTE | 2022-04-18 12:20 | W.PM.NPUPNS ---
Subjective NPU Subjective: Patient resents today reporting that she is doing okay. She obviously is worrying about whether there are any options that are materialize for her not to be in a bad situation when she discharges. Otherwise she reports that she is doing fine on the medication she is feeling more in control of her impulses but she does report feeling like she might be getting a UTI. We discussed checking a urinalysis to make sure she is not having a UTI. Otherwise she denies any major concerns other than figuring out a safe place to go. Mental Status Exam MSE Comments: This is an obese white female in hospital scrubs with colorful hair and adequate grooming and eye contact. No abnormal movements except for mild psychomotor retardation.? Cooperative with exam in no acute distress. Speech was more normal rate and volume. Mood described as okay, affect congruent.? Thought process, organized. Thought content: patient denies any suicidal or homicidal ideation, no delusions reported or noted, and denies any auditory or visual hallucinations. Attention and concentration are intact and memory is reliable though none were formally tested. She is alert and oriented three times. Insight and judgment are limited. Impulse control is impaired.? Intellectual abilities are limited. Vitals/I&O/Wt Last Vital Signs Temp 97.7 F 04/18/22 06:00 Pulse 66 04/18/22 06:00 Resp 18 04/18/22 06:00 BP 91/53 04/18/22 06:00 Pulse Ox 98 04/18/22 06:00 Weight last 48 hrs Weight 102.421 kg Data NPU : 03/24/22 22:50 03/24/22 22:50 A&P Assessment and plan (1) RUQ pain: Status: Acute (2) Vaginal itching: Status: Acute (3) Sexually transmitted disease (STD): Status: Acute (4) Unprotected sexual intercourse: Status: Acute (5) Cannabis use disorder, severe, dependence: Status: Acute (6) Alcohol use disorder, moderate, dependence: Status: Acute (7) Major depressive disorder: Status: Acute (8) PTSD (post-traumatic stress disorder): Status: Acute (9) Cluster B personality disorder in adult: Status: Acute (10) Suicidal ideation: Status: Acute Plan This is a 22-year-old, white female, with post-traumatic stress disorder, depression, anxiety, rule out borderline personality disorder, who presents reporting that she has been off her medication since she left the hospital a week or two ago, and she is hoping to get them restarted and assistance in actually getting them so they can be effective once she leaves. RECOMMENDATION AND PLAN: 1. Continue current medication.? [employer] 300 mg every morning and 600 mg at bedtime, Seroquel 100 mg and trazodone 50 mg at bedtime Depakote 750 mg twice daily and add prazosin 2 mg at bedtime.? 2. Encourage individual, group, and milieu therapy. 3. Continue q-15 minute checks for safety. 4. Encourage sober living treatment after discharge, at the highest level of care, to which she is willing to commit. 5. ?Check urinalysis to rule out UTI. 6. ? Significant concerns exist about her sexual promiscuity and her never having succeeded outside of the residential setting and her risk for danger if discharged to a skilled nursing or any other unsupervised setting.? Patient was willing to sign into the hospital understanding the dangers she presents herself unsupervised/unstructured. Involuntary Hold Information 96 Hour Hold: 96 Hour Involuntary Admission: Yes 96 Hour Hold Ending Date: 03/30/22 96 Hour Hold Ending Time: 23:00 Attestations NPU Medical Necessity Statement*: Inpatient hospitalization is medically necessary and the clinically appropriate intervention at this time.? We will initiate medications and make changes as indicated.? Awaiting safe placement for discharge. 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
[2022-04-18 14:00] VITALS: BP 124/82; PULSE 77; RESP 17; TEMP 37; O2SAT 98
[2022-04-18 20:00] VITALS: BP 104/74; PULSE 80; RESP 18; TEMP 37.3; O2SAT 97
[2022-04-18] MEDS: quetiapine 100 mg Tablet PO (20:20)
[2022-04-18] MEDS: prazosin 1 mg Capsule 2 MG PO (20:20)
[2022-04-18] MEDS: lithium carbonate 300 mg Capsule 600 MG PO (20:20)
[2022-04-19] MEDS: trazodone 50 mg Tablet PO ×2 (00:49→20:07)
[2022-04-19 06:00] VITALS: BP 101/68; PULSE 70; RESP 18; TEMP 36.7; O2SAT 98
[2022-04-19] MEDS: lithium carbonate 300 mg Capsule PO (06:10)
[2022-04-19] MEDS: pantoprazole DR 40 mg Tablet PO (06:10)
[2022-04-19 07:30] LABS: Bacteria Urine TRACE /hpf; Bilirubin Urine Neg (Negative); Blood Urine 2+ (Negative); Glucose Urine UA Norm (Normal); Ketones Urine Negative (Negative); Leukocyte Esterase Urine 2+ (Negative); Nitrate Urine Negative (Negative); Protein Urine Neg (Negative); RBC Urine 0-4 /hpf (0-2); Urine Appearance SL Hazy (CLEAR); Urine Color Yellow (Yellow); Urobilinogen Urine Norm (Negative); WBC Urine 80-100 /hpf (0-5); pH Urine 6 (5-7)
[2022-04-19 07:31] LABS: Add Urine Culture? Yes; Trichomonas Urine 1+ /hpf
[2022-04-19] MEDS: divalproex ER 500 mg Tablet (24H) PO ×2 (08:01→20:07)
[2022-04-19] MEDS: divalproex ER 250 mg Tablet (24H) PO ×2 (08:01→20:07)
[2022-04-19] MEDS: multivitamin therapeutic Tablet 1 TAB PO (08:01)
[2022-04-19] MEDS: thiamine 100 mg Tablet PO (08:01)
[2022-04-19] MEDS: folic acid 1 mg Tablet PO (08:01)
[2022-04-19] MEDS: nicotine 2 mg Gum BUCCAL ×3 (08:14→17:56)
[2022-04-19 14:00] VITALS: BP 115/76; PULSE 70; RESP 20; TEMP 36.8; O2SAT 99
--- NOTE | 2022-04-19 17:16 | P.NPUPN_ITS ---
Subjective NPU Subjective: Patient presents today continuing to work with the treatment team on options for discharge. There is a facility in [place] there working on that is specifically geared towards women that might give her an added level of safety. She is reporting having some itching and pain related to her urine and we ordered a urinalysis and will consider hospitalist consult depending on the results. She reports she is eating and sleeping well and hopeful for placement. Mental Status Exam MSE Comments: This is an obese white female in hospital scrubs with colorful hair and adequate grooming and eye contact. No abnormal movements except for mild psychomotor retardation.? Cooperative with exam in no acute distress. Speech was more normal rate and volume. Mood described as pretty good, affect congruent.? Thought process, organized. Thought content: patient denies any suicidal or homicidal ideation, no delusions reported or noted, and denies any auditory or visual hallucinations. Attention and concentration are intact and memory is reliable though none were formally tested. She is alert and oriented three times. Insight and judgment are limited. Impulse control is impaired.? Intellectual abilities are limited. Vitals/I&O/Wt Last Vital Signs Temp 98.3 F 04/19/22 14:00 Pulse 70 04/19/22 14:00 Resp 20 H 04/19/22 14:00 BP 115/76 04/19/22 14:00 Pulse Ox 99 04/19/22 14:00 Weight last 48 hrs Weight 102.421 kg Data NPU : 03/24/22 22:50 03/24/22 22:50 A&P Assessment and plan (1) Vaginal itching: Status: Acute (2) Sexually transmitted disease (STD): Status: Acute (3) Unprotected sexual intercourse: Status: Acute (4) Cannabis use disorder, severe, dependence: Status: Acute (5) Alcohol use disorder, moderate, dependence: Status: Acute (6) Major depressive disorder: Status: Acute (7) PTSD (post-traumatic stress disorder): Status: Acute (8) Cluster B personality disorder in adult: Status: Acute (9) Suicidal ideation: Status: Acute Plan This is a 22-year-old, white female, with post-traumatic stress disorder, depression, anxiety, rule out borderline personality disorder, who presents reporting that she has been off her medication since she left the hospital a week or two ago, and she is hoping to get them restarted and assistance in actually getting them so they can be effective once she leaves. RECOMMENDATION AND PLAN: 1. Continue current medication.? [place] 300 mg every morning and 600 mg at bedtime, Seroquel 100 mg and trazodone 50 mg at bedtime Depakote 750 mg twice daily and add prazosin 2 mg at bedtime.? 2. Encourage individual, group, and milieu therapy. 3. Continue q-15 minute checks for safety. 4. Encourage sober living treatment after discharge, at the highest level of care, to which she is willing to commit. 5. ?Ordered urinalysis to rule out UTI. Will consider hospitalist consult depending on results. 6. ? Significant concerns exist about her sexual promiscuity and her never having succeeded outside of the residential setting and her risk for danger if discharged to a nursing home or any other unsupervised setting.? Patient was willing to sign into the hospital understanding the dangers she presents herself unsupervised/unstructured. Involuntary Hold Information 96 Hour Hold: 96 Hour Involuntary Admission: Yes 96 Hour Hold Ending Date: 03/30/22 96 Hour Hold Ending Time: 23:00 Attestations NPU Medical Necessity Statement*: Inpatient hospitalization is medically necessary and the clinically appropriate intervention at this time.? We will initiate medications and make changes as indicated.? Awaiting safe placement for discharge. Coding Level of Care Code Acute Mainframe Programmer for g Fwd Diagnoses Vaginal itching N89.8 Sexually transmitted disease (STD) A64 Unprotected sexual intercourse Z72.51 Cannabis use disorder, severe, dependence F12.20 Alcohol use disorder, moderate, dependence F10.20 Major depressive disorder F32.9 PTSD (post-traumatic stress disorder) F43.10 Cluster B personality disorder in adult F60.9 Suicidal ideation R45.851
[2022-04-19] MEDS: lithium carbonate 300 mg Capsule 600 MG PO (20:07)
[2022-04-19] MEDS: quetiapine 100 mg Tablet PO (20:07)
[2022-04-19] MEDS: prazosin 1 mg Capsule 2 MG PO (20:07)
[2022-04-19 21:00] VITALS: BP 113/75; PULSE 83; RESP 16; TEMP 36.6; O2SAT 98
[2022-04-20 06:00] VITALS: BP 78/42; PULSE 51; RESP 16; TEMP 36.6; O2SAT 94
[2022-04-20] MEDS: pantoprazole DR 40 mg Tablet PO (06:01)
[2022-04-20] MEDS: lithium carbonate 300 mg Capsule PO (06:01)
[2022-04-20] MEDS: divalproex ER 500 mg Tablet (24H) PO ×2 (08:24→21:08)
[2022-04-20] MEDS: thiamine 100 mg Tablet PO (08:24)
[2022-04-20] MEDS: divalproex ER 250 mg Tablet (24H) PO ×2 (08:24→21:08)
[2022-04-20] MEDS: folic acid 1 mg Tablet PO (08:24)
[2022-04-20] MEDS: multivitamin therapeutic Tablet 1 TAB PO (08:24)
[2022-04-20 09:18] LABS: Thyroid Stimulating Hormone 23.44 uIU/mL (0.27-4.20)
[2022-04-20] MEDS: nicotine 2 mg Gum BUCCAL ×3 (09:58→18:23)
[2022-04-20 13:55] VITALS: BP 122/72; PULSE 80; RESP 16; TEMP 36.5; O2SAT 98
--- NOTE | 2022-04-20 16:43 | P.NPUPN_ITS ---
Subjective NPU Subjective: Patient presents today reporting that she got rejected from 1 program yesterday but did an interview for another. Social work was with her during the interview and said she did a wonderful job and was very strong in her self advocacy. He is making advancements in her understanding of how to interact with her intended resources and is having improvement in how she is managing her self on the unit. Mental Status Exam MSE Comments: This is an obese white female in hospital scrubs with colorful h air and adequate grooming and eye contact. No abnormal movements except for mild psychomotor retardation.? Cooperative with exam in no acute distress. Speech was more normal rate and volume. Mood described as disappointed I did not get excepted but pretty good, affect congruent.? Thought process, organized. Thought content: patient denies any suicidal or homicidal ideation, no delusions reported or noted, and denies any auditory or visual hallucinations. Attention and concentration are intact and memory is reliable though none were formally tested. She is alert and oriented three times. Insight and judgment are limited. Impulse control is impaired.? Intellectual abilities are limited. Vitals/I&O/Wt Last Vital Signs Temp 97.7 F 04/20/22 13:55 Pulse 80 04/20/22 13:55 Resp 16 04/20/22 13:55 BP 122/72 04/20/22 13:55 Pulse Ox 98 04/20/22 13:55 Data NPU : 03/24/22 22:50 03/24/22 22:50 Micro: Microbiology 04/19/22 06:30 Urine Culture - Preliminary Urine,Clean Catch Microbiology 04/19/22 06:30 Urine,Clean Catch Urine Culture - Preliminary A&P Assessment and plan (1) Vaginal itching: Status: Acute (2) Sexually transmitted disease (STD): Status: Acute (3) Unprotected sexual intercourse: Status: Acute (4) Cannabis use disorder, severe, dependence: Status: Acute (5) Alcohol use disorder, moderate, dependence: Status: Acute (6) Major depressive disorder: Status: Acute (7) PTSD (post-traumatic stress disorder): Status: Acute (8) Cluster B personality disorder in adult: Status: Acute (9) Suicidal ideation: Status: Acute Plan (1) Vaginal itching: (2) Sexually transmitted disease (STD): (3) Unprotected sexual intercourse: (4) Cannabis use disorder, severe, dependence: (5) Alcohol use disorder, moderate, dependence: (6) Major depressive disorder: (7) PTSD (post-traumatic stress disorder): (8) Cluster B personality disorder in adult: (9) Suicidal ideation: Plan This is a 22-year-old, white female, with post-traumatic stress disorder, depression, anxiety, rule out borderline personality disorder, who presents reporting that she has been off her medication since she left the hospital a week or two ago, and she is hoping to get them restarted and assistance in actually getting them so they can be effective once she leaves. RECOMMENDATION AND PLAN: 1. Continue current medication.? [place] 300 mg every morning and 600 mg at bedtime, Seroquel 100 mg and trazodone 50 mg at bedtime Depakote 750 mg twice daily and add prazosin 2 mg at bedtime.? 2. Encourage individual, group, and milieu therapy. 3. Continue q-15 minute checks for safety. 4. Encourage sober living treatment after discharge, at the highest level of care, to which she is willing to commit. 5. ?Ordered urinalysis to rule out UTI.? Will get hospitalist opinion depending on results. 6. ? Significant concerns exist about her sexual promiscuity and her never having succeeded outside of the residential setting and her risk for danger if discharged to a senior living or any other unsupervised setting.? Patient was willing to sign into the hospital understanding the dangers she presents herself unsupervised/unstructured. Involuntary Hold Information 96 Hour Hold: 96 Hour Involuntary Admission: Yes 96 Hour Hold Ending Date: 03/30/22 96 Hour Hold Ending Time: 23:00 Attestations NPU Medical Necessity Statement*: Inpatient hospitalization is medically necessary and the clinically appropriate intervention at this time.? We will initiate medications and make changes as indicated.? Awaiting safe placement for discharge. Coding Level of Care Code Acute School Bus Driver/Custodian for g Fwd Diagnoses Vaginal itching N89.8 Sexually transmitted disease (STD) A64 Unprotected sexual intercourse Z72.51 Cannabis use disorder, severe, dependence F12.20 Alcohol use disorder, moderate, dependence F10.20 Major depressive disorder F32.9 PTSD (post-traumatic stress disorder) F43.10 Cluster B personality disorder in adult F60.9 Suicidal ideation R45.851
[2022-04-20 18:45] VITALS: BP 97/65; PULSE 77; TEMP 36.5; O2SAT 98
[2022-04-20] MEDS: prazosin 1 mg Capsule 2 MG PO (21:08)
[2022-04-20] MEDS: quetiapine 100 mg Tablet PO (21:08)
[2022-04-20] MEDS: lithium carbonate 300 mg Capsule 600 MG PO (21:08)
[2022-04-20] MEDS: docusate sodium 100 mg Capsule PO (21:09)
[2022-04-20 22:00] VITALS: BP 97/65; PULSE 77; RESP 16; TEMP 36.5; O2SAT 98
[2022-04-21 06:00] VITALS: BP 111/75; PULSE 89; RESP 16; TEMP 36.6; O2SAT 98
[2022-04-21] MEDS: divalproex ER 500 mg Tablet (24H) PO ×3 (06:10→20:19)
[2022-04-21] MEDS: pantoprazole DR 40 mg Tablet PO (06:13)
[2022-04-21] MEDS: lithium carbonate 300 mg Capsule PO (06:13)
--- NOTE | 2022-04-21 08:31 | PC.NURSE ---
PT RESTING IN BED. DENIES PAIN. DENIES SI/HI AND VH AT THIS TIME. PT DOES ENDORSE HEARING VOICES THAT ARE CHATTERING, NON COMMANDING. PT BACK TO BED AND RESTING. SUPPORT VOICED.
[2022-04-21 09:13] LABS: T4 Total 4.4 mcg/dL (5.1-11.9)
[2022-04-21] MEDS: thiamine 100 mg Tablet PO (09:46)
[2022-04-21] MEDS: folic acid 1 mg Tablet PO (09:46)
[2022-04-21] MEDS: nicotine 2 mg Gum BUCCAL ×3 (09:46→17:21)
[2022-04-21] MEDS: divalproex ER 250 mg Tablet (24H) PO ×2 (09:46→20:19)
[2022-04-21] MEDS: multivitamin therapeutic Tablet 1 TAB PO (09:46)
[2022-04-21] MEDS: metroNIDAZOLE 500 MG Tablet PO ×2 (10:19→17:22)
[2022-04-21 14:00] VITALS: BP 111/75; PULSE 89; RESP 16; TEMP 36.6; O2SAT 98
--- NOTE | 2022-04-21 18:10 | W.PM.NPUPNS ---
Subjective NPU Subjective: Patient presents today continuing to work with a different entities with the social work team to find a place for placement. She continues to do better in the interview process minke is quite hopeful for success. She denies any issues with the medications and reports that she is eating and sleeping well. Mental Status Exam MSE Comments: This is an obese white female in hospital scrubs with colorful hair and adequate grooming and eye contact. No abnormal movements except for mild psychomotor retardation.? Cooperative with exam in no acute distress. Speech was more normal rate and volume. Mood described as doing better, affect congruent.? Thought process, organized. Thought content: patient denies any suicidal or homicidal ideation, no delusions reported or noted, and denies any auditory or visual hallucinations. Attention and concentration are intact and memory is reliable though none were formally tested. She is alert and oriented three times. Insight and judgment are limited. Impulse control is impaired.? Intellectual abilities are limited. Vitals/I&O/Wt Last Vital Signs Temp 98.4 F 04/21/22 19:33 Pulse 80 04/21/22 19:33 Resp 14 04/21/22 19:33 BP 117/80 04/21/22 19:33 Pulse Ox 99 04/21/22 19:33 Data NPU : 03/24/22 22:50 03/24/22 22:50 Micro: Microbiology 04/19/22 06:30 Urine Culture - Final Urine,Clean Catch Microbiology 04/19/22 06:30 Urine,Clean Catch Urine Culture - Final A&P Assessment and plan (1) Vaginal itching: Status: Acute (2) Sexually transmitted disease (STD): Status: Acute (3) Unprotected sexual intercourse: Status: Acute (4) Cannabis use disorder, severe, dependence: Status: Acute (5) Alcohol use disorder, moderate, dependence: Status: Acute (6) Major depressive disorder: Status: Acute (7) PTSD (post-traumatic stress disorder): Status: Acute (8) Cluster B personality disorder in adult: Status: Acute (9) Suicidal ideation: Status: Acute Plan This is a 22-year-old, white female, with post-traumatic stress disorder, depression, anxiety, rule out borderline personality disorder, who presents reporting that she has been off her medication since she left the hospital a week or two ago, and she is hoping to get them restarted and assistance in actually getting them so they can be effective once she leaves. RECOMMENDATION AND PLAN: 1. Continue current medication.? [place] 300 mg every morning and 600 mg at bedtime, Seroquel 100 mg and trazodone 50 mg at bedtime Depakote 750 mg twice daily and add prazosin 2 mg at bedtime.? 2. Encourage individual, group, and milieu therapy. 3. Continue q-15 minute checks for safety. 4. Encourage sober living treatment after discharge, at the highest level of care, to which she is willing to commit. 5. ?Started Flagyl 500 mg p.o. twice daily for 7 days for trichomonas. 6. ? Significant concerns exist about her sexual promiscuity and her never having succeeded outside of the residential setting and her risk for danger if discharged to a [place] [facility] [place] or any other unsupervised setting.? Patient was willing to sign into the hospital understanding the dangers she presents herself unsupervised/unstructured. Involuntary Hold Information 96 Hour Hold: 96 Hour Involuntary Admission: Yes 96 Hour Hold Ending Date: 03/30/22 96 Hour Hold Ending Time: 23:00 Attestations NPU Medical Necessity Statement*: Inpatient hospitalization is medically necessary and the clinically appropriate intervention at this time.? We will initiate medications and make changes as indicated.? Awaiting safe placement for discharge. Coding Level of Care Code Acute Paint Stockman for g Fwd Diagnoses Vaginal itching N89.8 Sexually transmitted disease (STD) A64 Unprotected sexual intercourse Z72.51 Cannabis use disorder, severe, dependence F12.20 Alcohol use disorder, moderate, dependence F10.20 Major depressive disorder F32.9 PTSD (post-traumatic stress disorder) F43.10 Cluster B personality disorder in adult F60.9 Suicidal ideation R45.851
[2022-04-21 19:33] VITALS: BP 117/80; PULSE 80; RESP 14; TEMP 36.9; O2SAT 99
[2022-04-21] MEDS: quetiapine 100 mg Tablet PO (20:19)
[2022-04-21] MEDS: lithium carbonate 300 mg Capsule 600 MG PO (20:19)
[2022-04-21] MEDS: prazosin 1 mg Capsule 2 MG PO (20:19)
[2022-04-22] MEDS: pantoprazole DR 40 mg Tablet PO (05:32)
[2022-04-22] MEDS: lithium carbonate 300 mg Capsule PO (05:32)
[2022-04-22 06:00] VITALS: BP 99/59; PULSE 58; RESP 17; TEMP 36.6; O2SAT 98
[2022-04-22] MEDS: multivitamin therapeutic Tablet 1 TAB PO (09:13)
[2022-04-22] MEDS: thiamine 100 mg Tablet PO (09:13)
[2022-04-22] MEDS: docusate sodium 100 mg Capsule PO (09:13)
[2022-04-22] MEDS: divalproex ER 500 mg Tablet (24H) PO ×2 (09:13→20:15)
[2022-04-22] MEDS: nicotine 2 mg Gum BUCCAL ×3 (09:13→18:21)
[2022-04-22] MEDS: folic acid 1 mg Tablet PO (09:13)
[2022-04-22] MEDS: divalproex ER 250 mg Tablet (24H) PO ×2 (09:15→20:15)
[2022-04-22] MEDS: metroNIDAZOLE 500 MG Tablet PO ×2 (09:15→18:21)
[2022-04-22 14:00] VITALS: BP 110/65; PULSE 87; RESP 16; TEMP 36.6; O2SAT 98
--- NOTE | 2022-04-22 15:33 | W.PM.NPUPNS ---
Subjective NPU Subjective: Patient presents today reporting that she is feeling fairly good. She reports mild frustration that not being accepted by anyone at this point but also is invested in finding a safe place for her to try to start her recovery and not fall back on dangerous patterns. She continues to work with the social work team with different entities in hopes of finding a safe place for discharge. Mental Status Exam MSE Comments: This is an obese white female in hospital scrubs with colorful hair and adequate grooming and eye contact. No abnormal movements except for mild psychomotor retardation.? Cooperative with exam in no acute distress. Speech was more normal rate and volume. Mood described as better, affect congruent.? Thought process, organized. Thought content: patient denies any suicidal or homicidal ideation, no delusions reported or noted, and denies any auditory or visual hallucinations. Attention and concentration are intact and memory is reliable though none were formally tested. She is alert and oriented three times. Insight and judgment are limited. Impulse control is impaired, but improving. Intellectual abilities are limited. Vitals/I&O/Wt Last Vital Signs Temp 98 F 04/22/22 14:00 Pulse 87 04/22/22 14:00 Resp 16 04/22/22 14:00 BP 110/65 04/22/22 14:00 Pulse Ox 98 04/22/22 14:00 Data NPU : 03/24/22 22:50 03/24/22 22:50 A&P Assessment and plan (1) Vaginal itching: Status: Acute (2) Sexually transmitted disease (STD): Status: Acute (3) Unprotected sexual intercourse: Status: Acute (4) Cannabis use disorder, severe, dependence: Status: Acute (5) Alcohol use disorder, moderate, dependence: Status: Acute (6) Major depressive disorder: Status: Acute (7) PTSD (post-traumatic stress disorder): Status: Acute (8) Cluster B personality disorder in adult: Status: Acute (9) Suicidal ideation: Status: Acute Plan This is a 22-year-old, white female, with post-traumatic stress disorder, depression, anxiety, rule out borderline personality disorder, who presents reporting that she has been off her medication since she left the hospital a week or two ago, and she is hoping to get them restarted and assistance in actually getting them so they can be effective once she leaves. RECOMMENDATION AND PLAN: 1. Continue current medication.? [place] 300 mg every morning and 600 mg at bedtime, Seroquel 100 mg and trazodone 50 mg at bedtime Depakote 750 mg twice daily and add prazosin 2 mg at bedtime.? 2. Encourage individual, group, and milieu therapy. 3. Continue q-15 minute checks for safety. 4. Encourage sober living treatment after discharge, at the highest level of care, to which she is willing to commit. 5. ?Started Flagyl 500 mg p.o. twice daily for 7 days for trichomonas. 6. ? Significant concerns exist about her sexual promiscuity and her never having succeeded outside of the residential setting and her risk for danger if discharged to a nursing home or any other unsupervised setting.? Patient was willing to sign into the hospital understanding the dangers she presents herself unsupervised/unstructured. Involuntary Hold Information 96 Hour Hold: 96 Hour Involuntary Admission: Yes 96 Hour Hold Ending Date: 03/30/22 96 Hour Hold Ending Time: 23:00 Attestations NPU Medical Necessity Statement*: Inpatient hospitalization is medically necessary and the clinically appropriate intervention at this time.? We will initiate medications and make changes as indicated.? Awaiting safe placement for discharge. Coding Level of Care Code Acute Operations Recruiter for g Fwd Diagnoses Vaginal itching N89.8 Sexually transmitted disease (STD) A64 Unprotected sexual intercourse Z72.51 Cannabis use disorder, severe, dependence F12.20 Alcohol use disorder, moderate, dependence F10.20 Major depressive disorder F32.9 PTSD (post-traumatic stress disorder) F43.10 Cluster B personality disorder in adult F60.9 Suicidal ideation R45.851
[2022-04-22 20:11] VITALS: BP 117/70; PULSE 89; RESP 16; TEMP 37.3; O2SAT 99
[2022-04-22] MEDS: prazosin 1 mg Capsule 2 MG PO (20:15)
[2022-04-22] MEDS: quetiapine 100 mg Tablet PO (20:15)
[2022-04-22] MEDS: lithium carbonate 300 mg Capsule 600 MG PO (20:15)
[2022-04-23] MEDS: pantoprazole DR 40 mg Tablet PO (05:45)
[2022-04-23] MEDS: lithium carbonate 300 mg Capsule PO (05:45)
[2022-04-23 06:00] VITALS: BP 106/71; PULSE 65; RESP 16; TEMP 36.7; O2SAT 98
[2022-04-23] MEDS: acetaminophen 325 mg Tablet 650 MG PO (09:48)
[2022-04-23] MEDS: metroNIDAZOLE 500 MG Tablet PO ×2 (09:48→17:14)
[2022-04-23] MEDS: folic acid 1 mg Tablet PO (09:48)
[2022-04-23] MEDS: nicotine 2 mg Gum BUCCAL ×3 (09:48→18:59)
[2022-04-23] MEDS: divalproex ER 250 mg Tablet (24H) PO ×2 (09:48→20:16)
[2022-04-23] MEDS: thiamine 100 mg Tablet PO (09:48)
[2022-04-23] MEDS: multivitamin therapeutic Tablet 1 TAB PO (09:48)
[2022-04-23] MEDS: divalproex ER 500 mg Tablet (24H) PO ×2 (09:49→20:16)
--- NOTE | 2022-04-23 13:51 | W.PM.NPUPNS ---
Subjective NPU Subjective: Patient presents today reporting that she is feeling all right. She reports that there were multiple recommendations made in the community and she is waiting for any interviews that she has to do. She continues to endorse a resolved to the validity as well and to be able to find a new place to reside. She was having improvement in her symptoms since we started her Flagyl. Mental Status Exam MSE Comments: This is an obese white female in hospital scrubs with colorful hair and adequate grooming and eye contact. No abnormal movements except for mild psychomotor retardation.? Cooperative with exam in no acute distress. Speech was more normal rate and volume. Mood described as better, affect congruent.? Thought process, organized. Thought content: patient denies any suicidal or homicidal ideation, no delusions reported or noted, and denies any auditory or visual hallucinations. Attention and concentration are intact and memory is reliable though none were formally tested. She is alert and oriented three times. Insight and judgment are limited. Impulse control is impaired, but improving.? Intellectual abilities are limited. Vitals/I&O/Wt Last Vital Signs Temp 98.1 F 04/23/22 06:00 Pulse 65 04/23/22 06:00 Resp 16 04/23/22 06:00 BP 106/71 04/23/22 06:00 Pulse Ox 98 04/23/22 06:00 Data NPU : 03/24/22 22:50 03/24/22 22:50 A&P Assessment and plan (1) Vaginal itching: Status: Acute (2) Sexually transmitted disease (STD): Status: Acute (3) Unprotected sexual intercourse: Status: Acute (4) Cannabis use disorder, severe, dependence: Status: Acute (5) Alcohol use disorder, moderate, dependence: Status: Acute (6) Major depressive disorder: Status: Acute (7) PTSD (post-traumatic stress disorder): Status: Acute (8) Cluster B personality disorder in adult: Status: Acute (9) Suicidal ideation: Status: Acute Plan This is a 22-year-old, white female, with post-traumatic stress disorder, depression, anxiety, rule out borderline personality disorder, who presents reporting that she has been off her medication since she left the hospital a week or two ago, and she is hoping to get them restarted and assistance in actually getting them so they can be effective once she leaves. RECOMMENDATION AND PLAN: 1. Continue current medication.? [place] 300 mg every morning and 600 mg at bedtime, Seroquel 100 mg and trazodone 50 mg at bedtime Depakote 750 mg twice daily and add prazosin 2 mg at bedtime.? 2. Encourage individual, group, and milieu therapy. 3. Continue q-15 minute checks for safety. 4. She was accepted by a program who will receive her on Tuesday. Did not have a chance to let her know. Tentative plan for discharge on Tuesday. 5. ?Started Flagyl 500 mg p.o. twice daily for 7 days for trichomonas. Involuntary Hold Information 96 Hour Hold: 96 Hour Involuntary Admission: Yes 96 Hour Hold Ending Date: 03/30/22 96 Hour Hold Ending Time: 23:00 Attestations NPU Medical Necessity Statement*: Inpatient hospitalization is medically necessary and the clinically appropriate intervention at this time.? We will initiate medications and make changes as indicated.? Plan for discharge on Tuesday. Coding Level of Care Code Acute Health Care / Medical Job Titles for [facility] Fwd Diagnoses Vaginal itching N89.8 Sexually transmitted disease (STD) A64 Unprotected sexual intercourse Z72.51 Cannabis use disorder, severe, dependence F12.20 Alcohol use disorder, moderate, dependence F10.20 Major depressive disorder F32.9 PTSD (post-traumatic stress disorder) F43.10 Cluster B personality disorder in adult F60.9 Suicidal ideation R45.851
[2022-04-23 14:00] VITALS: BP 111/73; PULSE 97; RESP 20; TEMP 36.9; O2SAT 98
[2022-04-23 19:38] VITALS: BP 122/70; PULSE 87; RESP 16; TEMP 36.8; O2SAT 97
[2022-04-23] MEDS: lithium carbonate 300 mg Capsule 600 MG PO (20:15)
[2022-04-23] MEDS: prazosin 1 mg Capsule 2 MG PO (20:15)
[2022-04-23] MEDS: quetiapine 100 mg Tablet PO (20:16)
[2022-04-24 06:00] VITALS: BP 99/66; PULSE 72; RESP 16; TEMP 36.4; O2SAT 97
[2022-04-24] MEDS: lithium carbonate 300 mg Capsule PO (06:04)
[2022-04-24] MEDS: pantoprazole DR 40 mg Tablet PO (06:04)
[2022-04-24] MEDS: divalproex ER 250 mg Tablet (24H) PO ×2 (09:33→20:00)
[2022-04-24] MEDS: thiamine 100 mg Tablet PO (09:33)
[2022-04-24] MEDS: multivitamin therapeutic Tablet 1 TAB PO (09:33)
[2022-04-24] MEDS: metroNIDAZOLE 500 MG Tablet PO ×2 (09:33→17:45)
[2022-04-24] MEDS: folic acid 1 mg Tablet PO (09:33)
[2022-04-24] MEDS: divalproex ER 500 mg Tablet (24H) PO ×2 (09:33→19:59)
[2022-04-24] MEDS: docusate sodium 100 mg Capsule PO (09:33)
[2022-04-24] MEDS: nicotine 2 mg Gum BUCCAL ×3 (09:33→19:59)
[2022-04-24] MEDS: acetaminophen 325 mg Tablet 650 MG PO (11:32)
[2022-04-24 13:38] VITALS: BP 105/71; PULSE 89; RESP 17; TEMP 37.4; O2SAT 98
--- NOTE | 2022-04-24 14:42 | W.PM.NPUPNS ---
Subjective NPU Subjective: Patient presents today reporting being very pleased about the except that she received to go to a program on Tuesday. She feels very vindicated and her stay here and feels like she is learning slowly but surely how to manage herself a little better. She denies any issues with medications and reports she is eating and sleeping fine. Mental Status Exam MSE Comments: This is an obese white female in hospital scrubs with colorful hair and adequate grooming and eye contact. No abnormal movements except for mild psychomotor retardation.? Cooperative with exam in no acute distress. Speech was more normal rate and volume. Mood described as pretty good, affect congruent.? Thought process, organized. Thought content: patient denies any suicidal or homicidal ideation, no delusions reported or noted, and denies any auditory or visual hallucinations. Attention and concentration are intact and memory is reliable though none were formally tested. She is alert and oriented three times. Insight and judgment are limited. Impulse control is impaired, but improving.? Intellectual abilities are limited. Vitals/I&O/Wt Last Vital Signs Temp 99.4 F 04/24/22 13:38 Pulse 89 04/24/22 13:38 Resp 17 04/24/22 13:38 BP 105/71 04/24/22 13:38 Pulse Ox 98 04/24/22 13:38 Data NPU : 03/24/22 22:50 03/24/22 22:50 A&P Assessment and plan (1) Vaginal itching: Status: Acute (2) Sexually transmitted disease (STD): Status: Acute (3) Unprotected sexual intercourse: Status: Acute (4) Cannabis use disorder, severe, dependence: Status: Acute (5) Alcohol use disorder, moderate, dependence: Status: Acute (6) Major depressive disorder: Status: Acute (7) PTSD (post-traumatic stress disorder): Status: Acute (8) Cluster B personality disorder in adult: Status: Acute (9) Suicidal ideation: Status: Acute Plan This is a 22-year-old, white female, with post-traumatic stress disorder, depression, anxiety, rule out borderline personality disorder, who presents reporting that she has been off her medication since she left the hospital a week or two ago, and she is hoping to get them restarted and assistance in actually getting them so they can be effective once she leaves. RECOMMENDATION AND PLAN: 1. Continue current medication.? [place] 300 mg every morning and 600 mg at bedtime, Seroquel 100 mg and trazodone 50 mg at bedtime Depakote 750 mg twice daily and add prazosin 2 mg at bedtime.? 2. Encourage individual, group, and milieu therapy. 3. Continue q-15 minute checks for safety. 4. She was accepted by a program who will receive her on Tuesday.? Did not have a chance to let her know.? Tentative plan for discharge on Tuesday. 5. ?Started Flagyl 500 mg p.o. twice daily for 7 days for trichomonas. Involuntary Hold Information 96 Hour Hold: 96 Hour Involuntary Admission: Yes 96 Hour Hold Ending Date: 03/30/22 96 Hour Hold Ending Time: 23:00 Attestations U Medical Necessity Statement*: Inpatient hospitalization is medically necessary and the clinically appropriate intervention at this time.? We will initiate medications and make changes as indicated.? Plan for discharge on Tuesday. Coding Level of Care Code Acute Orthopedic Shoes Salesperson for [facility] Fwd Diagnoses Vaginal itching N89.8 Sexually transmitted disease (STD) A64 Unprotected sexual intercourse Z72.51 Cannabis use disorder, severe, dependence F12.20 Alcohol use disorder, moderate, dependence F10.20 Major depressive disorder F32.9 PTSD (post-traumatic stress disorder) F43.10 Cluster B personality disorder in adult F60.9 Suicidal ideation R45.851
[2022-04-24] MEDS: OLANZapine 5 mg ODT PO (17:45)
[2022-04-24] MEDS: prazosin 1 mg Capsule 2 MG PO (19:58)
[2022-04-24] MEDS: trazodone 50 mg Tablet PO (19:58)
[2022-04-24] MEDS: lithium carbonate 300 mg Capsule 600 MG PO (19:59)
[2022-04-24] MEDS: quetiapine 100 mg Tablet PO (19:59)
[2022-04-24 20:07] VITALS: BP 118/75; PULSE 79; RESP 16; TEMP 37.3; O2SAT 97
[2022-04-25 05:56] VITALS: BP 98/61; PULSE 80; RESP 17; TEMP 36.6; O2SAT 97
[2022-04-25] MEDS: lithium carbonate 300 mg Capsule PO (06:06)
[2022-04-25] MEDS: pantoprazole DR 40 mg Tablet PO (06:06)
--- NOTE | 2022-04-25 08:34 | P.NPUPN_ITS ---
Subjective NPU Subjective: Patient presents today very happy and excited about tomorrow. She feels positive that she stuck with the plan and made the calls that made this come to be. We discussed work with the treatment team the morning to get all the logistics together but otherwise she reports having no problems or concerns. Mental Status Exam MSE Comments: This is an obese white female in hospital scrubs with colorful hair and adequate grooming and eye contact. No abnormal movements except for mild psychomotor retardation.? Cooperative with exam in no acute distress. Speech was more normal rate and volume. Mood described as good, affect congruent.? Thought process, organized. Thought content: patient denies any suicidal or homicidal ideation, no delusions reported or noted, and denies any auditory or visual hallucinations. Attention and concentration are intact and memory is reliable though none were formally tested. She is alert and oriented three times. Insight and judgment are limited, but improving Impulse control is improving.? Intellectual abilities are limited. Vitals/I&O/Wt Last Vital Signs Temp 98 F 04/25/22 05:56 Pulse 80 04/25/22 05:56 Resp 17 04/25/22 05:56 BP 98/61 04/25/22 05:56 Pulse Ox 97 04/25/22 05:56 Weight last 48 hrs Weight 104.417 kg Data NPU : 03/24/22 22:50 03/24/22 22:50 A&P Assessment and plan (1) Vaginal itching: Status: Acute (2) Sexually transmitted disease (STD): Status: Acute (3) Unprotected sexual intercourse: Status: Acute (4) Cannabis use disorder, severe, dependence: Status: Acute (5) Alcohol use disorder, moderate, dependence: Status: Acute (6) Major depressive disorder: Status: Acute (7) PTSD (post-traumatic stress disorder): Status: Acute (8) Cluster B personality disorder in adult: Status: Acute (9) Suicidal ideation: Status: Acute Plan This is a 22-year-old, white female, with post-traumatic stress disorder, depression, anxiety, rule out borderline personality disorder, who presents reporting that she has been off her medication since she left the hospital a week or two ago, and she is hoping to get them restarted and assistance in actually getting them so they can be effective once she leaves. RECOMMENDATION AND PLAN: 1. Continue current medication.? [place] 300 mg every morning and 600 mg at bedtime, Seroquel 100 mg and trazodone 50 mg at bedtime Depakote 750 mg twice daily and add prazosin 2 mg at bedtime.? 2. Encourage individual, group, and milieu therapy. 3. Continue q-15 minute checks for safety. 4. She was accepted by a program who will receive her on Tuesday.? Did not have a chance to let her know.? Tentative plan for discharge on Tuesday. 5. ?Started Flagyl 500 mg p.o. twice daily for 7 days for trichomonas. Involuntary Hold Information 96 Hour Hold: 96 Hour Involuntary Admission: Yes 96 Hour Hold Ending Date: 03/30/22 96 Hour Hold Ending Time: 23:00 Attestations U Medical Necessity Statement*: Inpatient hospitalization is medically necessary and the clinically appropriate intervention at this time.? We will initiate medications and make changes as indicated.? Plan for discharge on tomorrow. Coding Level of Care Code Acute Science Instructor for [facility] Fwd Diagnoses Vaginal itching N89.8 Sexually transmitted disease (STD) A64 Unprotected sexual intercourse Z72.51 Cannabis use disorder, severe, dependence F12.20 Alcohol use disorder, moderate, dependence F10.20 Major depressive disorder F32.9 PTSD (post-traumatic stress disorder) F43.10 Cluster B personality disorder in adult F60.9 Suicidal ideation R45.851
[2022-04-25] MEDS: divalproex ER 500 mg Tablet (24H) PO ×2 (09:19→21:50)
[2022-04-25] MEDS: metroNIDAZOLE 500 MG Tablet PO ×2 (09:20→21:50)
[2022-04-25] MEDS: thiamine 100 mg Tablet PO (09:20)
[2022-04-25] MEDS: nicotine 2 mg Gum BUCCAL (09:20)
[2022-04-25] MEDS: divalproex ER 250 mg Tablet (24H) PO ×2 (09:20→21:49)
[2022-04-25] MEDS: multivitamin therapeutic Tablet 1 TAB PO (09:20)
[2022-04-25] MEDS: folic acid 1 mg Tablet PO (09:20)
[2022-04-25 13:47] VITALS: BP 129/82; PULSE 87; RESP 17; TEMP 36.6; O2SAT 96
[2022-04-25] MEDS: trazodone 50 mg Tablet PO (21:50)
[2022-04-25] MEDS: lithium carbonate 300 mg Capsule 600 MG PO (21:50)
[2022-04-25] MEDS: quetiapine 100 mg Tablet PO (21:50)
[2022-04-25] MEDS: prazosin 1 mg Capsule 2 MG PO (21:50)
[2022-04-25 22:00] VITALS: BP 73/31; PULSE 79; RESP 17; TEMP 37.4; O2SAT 98
[2022-04-26 06:00] VITALS: BP 90/55; PULSE 86; RESP 16; TEMP 36.6; O2SAT 97
[2022-04-26] MEDS: lithium carbonate 300 mg Capsule PO (06:20)
[2022-04-26] MEDS: pantoprazole DR 40 mg Tablet PO (06:20)
[2022-04-26] MEDS: multivitamin therapeutic Tablet 1 TAB PO (08:34)
[2022-04-26] MEDS: folic acid 1 mg Tablet PO (08:34)
[2022-04-26] MEDS: hyDROXYzine 25 mg Capsule 50 MG PO (08:34)
[2022-04-26] MEDS: divalproex ER 250 mg Tablet (24H) PO (08:34)
[2022-04-26] MEDS: metroNIDAZOLE 500 MG Tablet PO (08:34)
[2022-04-26] MEDS: thiamine 100 mg Tablet PO (08:35)
[2022-04-26] MEDS: divalproex ER 500 mg Tablet (24H) PO (08:35)
[2022-04-26] MEDS: nicotine 2 mg Gum BUCCAL (08:35)
--- NOTE | 2022-04-26 09:37 | DCPLANNER ---
Imm was given to pt and rights explained and copy placed in chart.
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
[2022-04-26 12:55] VITALS: BP 90/55; PULSE 86; RESP 16; TEMP 36.6; O2SAT 97
== END 2022-04-26 16:05 | disposition home or self-care (01) | DRG 881 ==
LOC: ER 23:31 → NP 23:56
PROVIDERS: Family Medicine; Psychiatry & Neurology Psychiatry; Admitting Provider Psychiatry & Neurology Psychiatry; Emergency Provider Emergency Medicine; Visit Provider Psychiatry & Neurology Psychiatry
DX: F32.9 Major depressive disorder, single episode, unspecified (principal); R45.851 Suicidal ideations; F12.20 Cannabis dependence, uncomplicated; F60.89 Other specific personality disorders; F43.10 Post-traumatic stress disorder, unspecified; F10.20 Alcohol dependence, uncomplicated; F41.9 Anxiety disorder, unspecified; Z72.51 High risk heterosexual behavior; A74.9 Chlamydial infection, unspecified; A59.9 Trichomoniasis, unspecified; R10.11 Right upper quadrant pain
CPT/HCPCS: 36415; 76705; 80053; 80074; 80178; 80306; 80307; 81001; 81025; 84436; 84443; 84702; 84703; 85025; 86592; 87086; 87491; 87591; 87661; 87806; 96372; 97150; 97165; 99285; J0696; J2060; J2550; Q0144; Q0162